=== PATIENT | male | born 1980 | race Caucasian/White ===

== ENCOUNTER 2016-04-29 10:58 | Emergency (ER) | payer MEDICAID, OTHER ==
[~2016-04-29] VITALS: Ht 172.7 cm; Wt 111.4 kg
[~2016-04-29 10:58] MED LIST: ARIP10TA14 PO; GEMF600T3 PO
[2016-04-29 11:36] LABS: GLUCOSE,POINT OF CARE 102 MG/DL (70-110)
[2016-04-29 13:32] LABS: GLUCOSE,POINT OF CARE 103 MG/DL (70-110)
[2016-04-29 14:25] LABS: BASOPHILS % (AUTO) 0.4 % (0.0-2.0); EOSINOPHILS % (AUTO) 1.1 % (1.0-6.0); HEMATOCRIT 41.6 % (41-53); HEMOGLOBIN 13.5 g/dL (13.5-17.5); LYMPHOCYTES # (AUTO) 2.9 K/uL (1.0-4.8); MEAN CORPUSCULAR HEMOGLOBIN 26.8 pg (26.0-34.0); MEAN CORPUSCULAR HGB CONC 32.5 G/dL (31.0-37.0); MEAN CORPUSCULAR VOLUME 82 fL (80-100); MONOCYTES # (AUTO) 0.9 K/uL (0.1-1.0); MONOCYTES % (AUTO) 9.3 % (2.0-9.0); NEUTROPHILS # (AUTO) 5.5 K/uL (1.8-7.7); NEUTROPHILS % (AUTO) 58.2 % (40.0-70.0); PLATELET COUNT (AUTO) 348 K/uL (150-450); RED BLOOD CELL COUNT(AUTO) 5.06 MIL/uL (4.50-5.90); RED CELL DISTRIBUTION WIDTH 13.8 % (11.5-14.5); WHITE BLOOD COUNT (AUTO) 9.5 K/uL (4.5-11.0)
[2016-04-29 14:34] LABS: ADD UA MICROSCOPIC NO; APPEARANCE,URINE CLEAR (CLEAR); GLUCOSE, URINE (UA) NEGATIVE (NEGATIVE); KETONES,URINE NEGATIVE (NEGATIVE); LEUKOCYTE ESTERASE ,URINE NEGATIVE (NEGATIVE); OCCULT BLOOD,URINE NEGATIVE (NEGATIVE); PROTEIN,URINE NEGATIVE (NEGATIVE)
[2016-04-29 14:35] LABS: ANION GAP 9 mmol/L (8-16); CALCIUM, TOTAL 9.3 mg/dL (8.8-10.5); CARBON DIOXIDE 28 mmol/L (22-29); CHLORIDE 100 mmol/L (98-107); CREATININE 0.86 mg/dL (0.60-1.30); GLOMERULAR FILTR. RATE CALC > 60 mL/min (>60); POTASSIUM 3.4 mmol/L (3.5-5.1); SODIUM SERUM 137 mmol/L (136-145); UREA NITROGEN, BLOOD 11 mg/dL (7-18)
[2016-04-29 14:40] LABS: ALANINE AMINOTRANSFERASE 37 U/L (12-78); ALBUMIN 4.2 g/dL (3.4-5.0); ASPARTATE AMINOTRANSFERASE 21 U/L (15-37); BILIRUBIN,TOTAL 0.3 mg/dL (0.1-1.0); TOTAL PROTEIN, SERUM 8.4 g/dL (6.4-8.2)
[2016-04-29 16:16] VITALS: BP 118/66
[2016-04-29] MEDS ORDERED: MECLIZINE HCL 25 MG TABLET PO ONE (16:30)
== END 2016-04-29 17:03 | disposition home or self-care (01) ==
LOC: EMS 10:59
DX: H81.399 Other peripheral vertigo, unspecified ear (principal); E78.00 Pure hypercholesterolemia, unspecified
CPT/HCPCS: 82962; 93005; 99285

== ENCOUNTER 2019-11-22 12:01 | Emergency (ER) | payer OTHER ==
[~2019-11-22] VITALS: Ht 172.7 cm; Wt 147.7 kg
[~2019-11-22 12:01] MED LIST changes: -ARIP10TA14 PO; +ARIP10TA8 PO; -GEMF600T3 PO; +GEMF600T5 PO
[2019-11-22] MEDS ORDERED: PIOG45TA4 PO (12:35)
[2019-11-22] MEDS ORDERED: FAMO20 PO (12:35)
[2019-11-22] MEDS ORDERED: TRAZ-252 PO (12:35)
[2019-11-22] MEDS ORDERED: ASPI-1111 PO (12:35)
[2019-11-22] MEDS ORDERED: METF-911 PO (12:35)
[2019-11-22] MEDS ORDERED: FENO160T41 PO (12:35)
[2019-11-22 13:24] LABS: BASOPHILS % (AUTO) 0.6 % (0.0-2.0); EOSINOPHILS % (AUTO) 0.4 % (1.0-6.0); HEMOGLOBIN 12.8 g/dL (13.5-17.5); LYMPHOCYTES # (AUTO) 2.5 K/uL (1.0-4.8); LYMPHOCYTES % (AUTO) 20.6 % (22.0-44.0); MEAN CORPUSCULAR HEMOGLOBIN 26.4 pg (26.0-34.0); MEAN CORPUSCULAR HGB CONC 32.8 G/dL (31.0-37.0); MEAN CORPUSCULAR VOLUME 81 fL (80-100); NEUTROPHILS # (AUTO) 8.7 K/uL (1.8-7.7); NEUTROPHILS % (AUTO) 70.4 % (40.0-70.0); PLATELET COUNT (AUTO) 330 K/uL (150-450); RED BLOOD CELL COUNT(AUTO) 4.85 MIL/uL (4.50-5.90); RED CELL DISTRIBUTION WIDTH 13.5 % (11.5-14.5)
[2019-11-22 13:42] LABS: ANION GAP 6 mmol/L (8-16); CALCIUM, TOTAL 8.9 mg/dL (8.8-10.5); CARBON DIOXIDE 29 mmol/L (22-29); CHLORIDE 94 mmol/L (98-107); GLOMERULAR FILTR. RATE CALC > 60 mL/min (>60); GLUCOSE,RANDOM 162 mg/dL (70-110); POTASSIUM 3.7 mmol/L (3.5-5.1); SODIUM SERUM 129 mmol/L (136-145); UREA NITROGEN, BLOOD 17 mg/dL (7-18)
[2019-11-22 13:48] LABS: ALANINE AMINOTRANSFERASE 34 U/L (12-78); ALBUMIN 3.6 g/dL (3.4-5.0); ALKALINE PHOSPHATASE 113 U/L (46-116); ASPARTATE AMINOTRANSFERASE 18 U/L (15-37); BILIRUBIN,TOTAL 0.2 mg/dL (0.1-1.0); LIPASE 102 U/L (73-393); TOTAL PROTEIN, SERUM 7.1 g/dL (6.4-8.2)
[2019-11-22] MEDS: LORazepam 1 MG TABLET PO ONE (13:59)
[2019-11-22 14:31] LABS: AMPHET/METH SCREEN,URINE NEGATIVE (NEGATIVE); BARBITURATE SCREEN, URINE NEGATIVE (NEGATIVE); BENZODIAZEPINES SCREEN,URINE NEGATIVE (NEGATIVE); CANNABINOID SCREEN,URINE NEGATIVE (NEGATIVE); COCAINE SCREEN,URINE NEGATIVE (NEGATIVE); METHADONE SCREEN, URINE NEGATIVE (NEGATIVE); OPIATE SCREEN,URINE NEGATIVE (NEGATIVE); PHENCYCLIDINE SCREEN,URINE NEGATIVE (NEGATIVE)
[2019-11-22 16:10] VITALS: BP 158/80
== END 2019-11-22 16:57 | disposition home or self-care (01) ==
LOC: EMS 12:03
DX: F41.9 Anxiety disorder, unspecified (principal); F20.9 Schizophrenia, unspecified; F32.9 Major depressive disorder, single episode, unspecified; E78.00 Pure hypercholesterolemia, unspecified; I10 Essential (primary) hypertension; Z79.82 Long term (current) use of aspirin; Z79.84 Long term (current) use of oral hypoglycemic drugs; Z79.899 Other long term (current) drug therapy
CPT/HCPCS: 36415; 80053; 80307; 82962; 83690; 85025; 99284; G0480

== ENCOUNTER 2021-04-11 14:20 | Observation (INO) | payer OTHER ==
[~2021-04-11] VITALS: Ht 172.7 cm; Wt 147.5 kg
[~2021-04-11 14:20] MED LIST changes: +ARIP10TA38 PO; -ARIP10TA8 PO; +ASPI-1444 PO; +FAMO20 PO; +FENO160T14 PO; -GEMF600T5 PO; +GEMF600T90 PO; +METF-911 PO; +PIOG45TA4 PO; +TRAZ-252 PO
[2021-04-11 15:29] LABS: BASOPHILS % (AUTO) 0.3 % (0.0-2.0); EOSINOPHILS % (AUTO) 0.8 % (1.0-6.0); HEMOGLOBIN 13.4 g/dL (13.5-17.5); LYMPHOCYTES # (AUTO) 2.8 K/uL (1.0-4.8); LYMPHOCYTES % (AUTO) 25.9 % (22.0-44.0); MEAN CORPUSCULAR HEMOGLOBIN 25.8 pg (26.0-34.0); MEAN CORPUSCULAR HGB CONC 33.5 G/dL (31.0-37.0); MEAN CORPUSCULAR VOLUME 77 fL (80-100); MONOCYTES # (AUTO) 0.7 K/uL (0.1-1.0); MONOCYTES % (AUTO) 6.7 % (2.0-9.0); NEUTROPHILS # (AUTO) 7.3 K/uL (1.8-7.7); NEUTROPHILS % (AUTO) 66.3 % (40.0-70.0); PLATELET COUNT (AUTO) 303 K/uL (150-450); RED BLOOD CELL COUNT(AUTO) 5.18 MIL/uL (4.50-5.90); RED CELL DISTRIBUTION WIDTH 14.5 % (11.5-14.5)
[2021-04-11 15:37] LABS: ANION GAP 11 mmol/L (8-16); CALCIUM, TOTAL 9.6 mg/dL (8.8-10.5); CARBON DIOXIDE 26 mmol/L (22-29); CHLORIDE 100 mmol/L (98-107); GLOMERULAR FILTR. RATE CALC > 60 mL/min (>60); GLUCOSE,RANDOM 167 mg/dL (70-110); SODIUM SERUM 137 mmol/L (136-145); UREA NITROGEN, BLOOD 10 mg/dL (7-18)
[2021-04-11 15:43] LABS: ALANINE AMINOTRANSFERASE 33 U/L (12-78); ALBUMIN 3.5 g/dL (3.4-5.0); ALKALINE PHOSPHATASE 130 U/L (46-116); ASPARTATE AMINOTRANSFERASE 19 U/L (15-37); BILIRUBIN,TOTAL 0.2 mg/dL (0.1-1.0); TOTAL PROTEIN, SERUM 7.4 g/dL (6.4-8.2)
[2021-04-11 17:02] LABS: AMPHET/METH SCREEN,URINE NEGATIVE (NEGATIVE); BARBITURATE SCREEN, URINE NEGATIVE (NEGATIVE); BENZODIAZEPINES SCREEN,URINE NEGATIVE (NEGATIVE); CANNABINOID SCREEN,URINE NEGATIVE (NEGATIVE); COCAINE SCREEN,URINE NEGATIVE (NEGATIVE); METHADONE SCREEN, URINE NEGATIVE (NEGATIVE); OPIATE SCREEN,URINE NEGATIVE (NEGATIVE)
[2021-04-11 17:05] LABS: PHENCYCLIDINE SCREEN,URINE NEGATIVE (NEGATIVE)
[2021-04-11] MEDS ORDERED: ZOLPIDEM TARTRATE 10 MG TABLET PO PRN (18:00)
[2021-04-11] MEDS ORDERED: HALOPERIDOL 5 MG TABLET PO PRN (18:00)
[2021-04-11] MEDS ORDERED: LORazepam 2 MG TABLET PO PRN (18:00)
[2021-04-11 19:21] LABS: COVID AG,FIA SOURCE NASOPHARYNGEAL
[2021-04-12] MEDS ORDERED: 0.9% SODIUM CHLORIDE 10 ML SYRINGE IVP PRN (00:15)
[2021-04-12] MEDS ORDERED: ACETAMINOPHEN 325 MG TABLET PO PRN ×2 (00:15→05:30)
[2021-04-12 00:39] LABS: CHOL/HDL RATIO 7.3 (4.2-7.3); CHOLESTEROL 213 mg/dL (131-200); HDL CHOLESTEROL 29 mg/dL (40-60); TRIGLYCERIDES 484 mg/dL (15-150)
[2021-04-12 03:10] VITALS: BP 113/58
[2021-04-12] MEDS ORDERED: ALBUTEROL SULFATE HFA 90 MCG/PUFF 8 GM INHALER IH PRN (05:30)
[2021-04-12] MEDS ORDERED: GuaiFENesin/D-METHORPHAN [SUGAR-FREE] 200-20MG/10 ML SYRUP UDCUP PO PRN (05:30)
[2021-04-12] MEDS ORDERED: ONDANSETRON HCL 4 MG TABLET PO PRN (05:30)
[2021-04-12] MEDS ORDERED: DOCUSATE SODIUM 100 MG CAPSULE PO PRN (05:30)
[2021-04-12] MEDS ORDERED: CloNIDine HCL 0.1 MG TABLET PO PRN (05:30)
[2021-04-12] MEDS ORDERED: MAGNESIUM HYDROXIDE SUSPENSION 30 ML UDCUP PO PRN (05:30)
[2021-04-12] MEDS ORDERED: NICOTINE 14 MG/24 HOUR PATCH TD PRN (05:30)
[2021-04-12] MEDS ORDERED: PETROLATUM,WHITE 28 GM JELLY TP PRN (05:30)
[2021-04-12] MEDS ORDERED: MAG HYDROX/AL HYDROX/SIMETH ES 30 ML SUSPENSION UDCUP PO PRN (05:30)
[2021-04-12] MEDS ORDERED: IBUPROFEN 400 MG TABLET PO PRN (05:30)
[2021-04-12] MEDS ORDERED: LOPERAMIDE HCL 2 MG CAPSULE PO PRN (05:30)
[2021-04-12] MEDS: GEMFIBROZIL 600 MG TABLET PO SCH ×2 (06:27→17:30)
[2021-04-12 08:50] VITALS: BP 136/84
[2021-04-12] MEDS: PIOGLITAZONE HCL 45 MG TABLET PO SCH (09:00)
[2021-04-12 09:31] LABS: GLUCOMETER DEV NAME(LOC) 5N.3; GLUCOSE,POINT OF CARE 133 MG/DL (70-110)
[2021-04-12] MEDS: MetFORMIN HCL 500 MG ER TABLET PO SCH ×2 (09:51→18:07)
[2021-04-12] MEDS: ARIPiprazole 15 MG TABLET PO SCH (09:51)
[2021-04-12] MEDS: FENOFIBRATE 160 MG TABLET PO SCH (09:52)
[2021-04-12] MEDS: ASPIRIN 81 MG DR TABLET PO SCH (09:52)
[2021-04-12] MEDS: FAMOTIDINE 20 MG TABLET PO SCH ×2 (09:52→20:50)
[2021-04-12] MEDS ORDERED: DEXTROSE 50%-WATER 25 GM/50 ML SYRINGE IVP PRN (12:00)
[2021-04-12 12:01] LABS: GLUCOMETER DEV NAME(LOC) 5N.1C; GLUCOSE,POINT OF CARE 244 MG/DL (70-110)
[2021-04-12] MEDS: INSULIN LISPRO 100 UNITS/ML SQ PRN ×3 (12:12→21:31)
[2021-04-12 12:17] VITALS: BP 125/78
[2021-04-12 12:20] VITALS: BP 125/78
[2021-04-12 16:07] VITALS: BP 128/68
[2021-04-12 19:45] VITALS: BP 111/77
[2021-04-12 20:26] LABS: GLUCOMETER DEV NAME(LOC) 5S.2B; GLUCOSE,POINT OF CARE 179 MG/DL (70-110)
[2021-04-12] MEDS ORDERED: TraZODone HCL 50 MG TABLET PO SCH (21:00)
[2021-04-12 21:56] LABS: GLUCOMETER DEV NAME(LOC) 5S.2B; GLUCOSE,POINT OF CARE 200 MG/DL (70-110)
[2021-04-13 00:11] VITALS: BP 126/73
[2021-04-13 04:35] VITALS: BP 139/84
[2021-04-13] MEDS: GEMFIBROZIL 600 MG TABLET PO SCH ×2 (06:41→17:10)
[2021-04-13] MEDS: INSULIN LISPRO 100 UNITS/ML SQ PRN ×3 (06:41→17:17)
[2021-04-13 07:08] LABS: BASOPHILS % (AUTO) 0.4 % (0.0-2.0); MONOCYTES # (AUTO) 0.7 K/uL (0.1-1.0)
[2021-04-13 07:18] LABS: EOSINOPHILS % (AUTO) 1.3 % (1.0-6.0); HEMATOCRIT 41.2 % (41-53); HEMOGLOBIN 13.8 g/dL (13.5-17.5); LYMPHOCYTES # (AUTO) 2.7 K/uL (1.0-4.8); LYMPHOCYTES % (AUTO) 31.6 % (22.0-44.0); MEAN CORPUSCULAR HEMOGLOBIN 26.1 pg (26.0-34.0); MEAN CORPUSCULAR HGB CONC 33.5 G/dL (31.0-37.0); MEAN CORPUSCULAR VOLUME 78 fL (80-100); NEUTROPHILS % (AUTO) 58.7 % (40.0-70.0); PLATELET COUNT (AUTO) 311 K/uL (150-450); RED BLOOD CELL COUNT(AUTO) 5.28 MIL/uL (4.50-5.90); RED CELL DISTRIBUTION WIDTH 14.6 % (11.5-14.5)
[2021-04-13 07:50] LABS: ALANINE AMINOTRANSFERASE 34 U/L (12-78); ALBUMIN 3.6 g/dL (3.4-5.0); ALKALINE PHOSPHATASE 102 U/L (46-116); ANION GAP 10 mmol/L (8-16); ASPARTATE AMINOTRANSFERASE 19 U/L (15-37); BILIRUBIN,TOTAL 0.4 mg/dL (0.1-1.0); CARBON DIOXIDE 25 mmol/L (22-29); CHLORIDE 100 mmol/L (98-107); CREATININE 0.73 mg/dL (0.60-1.30); GLOMERULAR FILTR. RATE CALC > 60 mL/min (>60); GLUCOSE,RANDOM 192 mg/dL (70-110); POTASSIUM 4.1 mmol/L (3.5-5.1); SODIUM SERUM 135 mmol/L (136-145); TOTAL PROTEIN, SERUM 7.9 g/dL (6.4-8.2); UREA NITROGEN, BLOOD 9 mg/dL (7-18)
[2021-04-13 08:30] VITALS: BP 135/83
[2021-04-13 09:01] LABS: GLUCOMETER DEV NAME(LOC) 5S.2B; GLUCOSE,POINT OF CARE 211 MG/DL (70-110)
[2021-04-13] MEDS: FAMOTIDINE 20 MG TABLET PO SCH (09:04)
[2021-04-13] MEDS: ARIPiprazole 15 MG TABLET PO SCH (09:04)
[2021-04-13] MEDS: ASPIRIN 81 MG DR TABLET PO SCH (09:04)
[2021-04-13] MEDS: PIOGLITAZONE HCL 45 MG TABLET PO SCH (09:04)
[2021-04-13] MEDS: FENOFIBRATE 160 MG TABLET PO SCH (09:04)
[2021-04-13] MEDS: MetFORMIN HCL 500 MG ER TABLET PO SCH ×2 (09:04→17:10)
[2021-04-13 11:03] VITALS: BP 134/81
[2021-04-13 12:21] LABS: GLUCOMETER DEV NAME(LOC) 5S.2B; GLUCOSE,POINT OF CARE 185 MG/DL (70-110)
[2021-04-13 14:57] VITALS: BP 134/78
[2021-04-13 16:22] LABS: COVID AG,FIA SOURCE NASOPHARYNGEAL
[2021-04-13 18:11] LABS: GLUCOMETER DEV NAME(LOC) 5S.2B; GLUCOSE,POINT OF CARE 201 MG/DL (70-110)
[2021-04-13 21:51] LABS: GLUCOMETER DEV NAME(LOC) 3EX.; GLUCOSE,POINT OF CARE 217 MG/DL (70-110)
== END 2021-04-13 18:40 ==
LOC: EMS 14:20 → INTOOBSV 04-12 00:53 → 5S 04-12 00:53
PROVIDERS: ADMIT Internal Medicine; ATTEND Internal Medicine
DX: F25.9 Schizoaffective disorder, unspecified (principal); F32.A Depression, unspecified; E66.01 Morbid (severe) obesity due to excess calories; G47.33 Obstructive sleep apnea (adult) (pediatric); Z20.822 Contact with and (suspected) exposure to COVID-19; E78.5 Hyperlipidemia, unspecified; I10 Essential (primary) hypertension; Z79.899 Other long term (current) drug therapy; Z79.4 Long term (current) use of insulin
CPT/HCPCS: 36415 ×2; 80053 ×2; 80061; 80307; 82962 ×2; 85025 ×2; 87426 ×2; 94660 ×2; 96372 ×2; 99219 ×2; 99284; G0480; 99285; G0378

== ENCOUNTER 2021-04-13 14:27 | Inpatient (IN) | payer MEDICAID ==
[~2021-04-13] VITALS: Ht 172.7 cm; Wt 146.3 kg
[2021-04-13] MEDS ORDERED: HALOPERIDOL 5 MG TABLET PO PRN ×2 (16:00→19:45)
[2021-04-13] MEDS ORDERED: LORazepam 2 MG TABLET PO PRN ×2 (16:00→19:45)
[2021-04-13] MEDS ORDERED: ZOLPIDEM TARTRATE 10 MG TABLET PO PRN ×2 (16:00→19:45)
[2021-04-13 19:00] VITALS: BP 161/86
[2021-04-13] MEDS ORDERED: DEXTROSE 50%-WATER 25 GM/50 ML SYRINGE IVP PRN (19:45)
[2021-04-13] MEDS: TraZODone HCL 50 MG TABLET PO SCH (20:11)
[2021-04-13] MEDS ORDERED: ACETAMINOPHEN 325 MG TABLET PO PRN (20:45)
[2021-04-13] MEDS ORDERED: MAGNESIUM HYDROXIDE SUSPENSION 30 ML UDCUP PO PRN (20:45)
[2021-04-13] MEDS ORDERED: MAG HYDROX/AL HYDROX/SIMETH ES 30 ML SUSPENSION UDCUP PO PRN (20:45)
[2021-04-13] MEDS ORDERED: GuaiFENesin/D-METHORPHAN [SUGAR-FREE] 200-20MG/10 ML SYRUP UDCUP PO PRN (20:45)
[2021-04-13] MEDS ORDERED: ONDANSETRON HCL 4 MG TABLET PO PRN (20:45)
[2021-04-13] MEDS ORDERED: PETROLATUM,WHITE 28 GM JELLY TP PRN (20:45)
[2021-04-13] MEDS ORDERED: DOCUSATE SODIUM 100 MG CAPSULE PO PRN (20:45)
[2021-04-13] MEDS ORDERED: NICOTINE 14 MG/24 HOUR PATCH TD PRN (20:45)
[2021-04-13] MEDS ORDERED: ALBUTEROL SULFATE HFA 90 MCG/PUFF 8 GM INHALER IH PRN (20:45)
[2021-04-13] MEDS ORDERED: LOPERAMIDE HCL 2 MG CAPSULE PO PRN (20:45)
[2021-04-13] MEDS ORDERED: CloNIDine HCL 0.1 MG TABLET PO PRN (20:45)
[2021-04-13] MEDS: INSULIN LISPRO 100 UNITS/ML SQ PRN (21:43)
[2021-04-14 06:36] LABS: GLUCOMETER DEV NAME(LOC) 3EX.; GLUCOSE,POINT OF CARE 192 MG/DL (70-110)
[2021-04-14] MEDS: INSULIN LISPRO 100 UNITS/ML SQ PRN ×4 (06:41→20:27)
[2021-04-14] MEDS: GEMFIBROZIL 600 MG TABLET PO SCH ×2 (06:46→16:15)
[2021-04-14] MEDS: MetFORMIN HCL 500 MG ER TABLET PO SCH ×2 (06:47→16:41)
[2021-04-14 08:33] VITALS: BP 145/95
[2021-04-14] MEDS: ASPIRIN 81 MG CHEWABLE TABLET PO SCH (08:58)
[2021-04-14] MEDS: FENOFIBRATE 160 MG TABLET PO SCH (08:58)
[2021-04-14] MEDS: ARIPiprazole 15 MG TABLET PO SCH (08:58)
[2021-04-14] MEDS: FAMOTIDINE 20 MG TABLET PO SCH (08:58)
[2021-04-14] MEDS: PIOGLITAZONE HCL 45 MG TABLET PO SCH (08:58)
[2021-04-14 10:51] VITALS: BP 145/95
[2021-04-14] MEDS: IBUPROFEN 400 MG TABLET PO PRN (10:56)
[2021-04-14 11:01] LABS: GLUCOMETER DEV NAME(LOC) 3EX.; GLUCOSE,POINT OF CARE 206 MG/DL (70-110)
[2021-04-14 16:34] VITALS: BP 154/100
[2021-04-14 17:01] LABS: GLUCOMETER DEV NAME(LOC) 3EX.; GLUCOSE,POINT OF CARE 255 MG/DL (70-110)
[2021-04-14] MEDS: TraZODone HCL 50 MG TABLET PO SCH (20:19)
[2021-04-14 20:36] LABS: GLUCOMETER DEV NAME(LOC) 3EX.; GLUCOSE,POINT OF CARE 187 MG/DL (70-110)
[2021-04-15 01:20] VITALS: BP 131/82
[2021-04-15 06:27] LABS: GLUCOMETER DEV NAME(LOC) 3EX.; GLUCOSE,POINT OF CARE 179 MG/DL (70-110)
[2021-04-15] MEDS: GEMFIBROZIL 600 MG TABLET PO SCH ×2 (06:44→17:59)
[2021-04-15] MEDS: MetFORMIN HCL 500 MG ER TABLET PO SCH ×2 (06:46→17:59)
[2021-04-15] MEDS: INSULIN LISPRO 100 UNITS/ML SQ PRN ×4 (06:57→21:09)
[2021-04-15 07:40] LABS: ALANINE AMINOTRANSFERASE 36 U/L (12-78); ALBUMIN 3.8 g/dL (3.4-5.0); ALKALINE PHOSPHATASE 107 U/L (46-116); ANION GAP 7 mmol/L (8-16); ASPARTATE AMINOTRANSFERASE 16 U/L (15-37); BILIRUBIN,TOTAL 0.4 mg/dL (0.1-1.0); CARBON DIOXIDE 27 mmol/L (22-29); CHLORIDE 100 mmol/L (98-107); CREATININE 0.82 mg/dL (0.60-1.30); GLOMERULAR FILTR. RATE CALC > 60 mL/min (>60); GLUCOSE,RANDOM 206 mg/dL (70-110); SODIUM SERUM 134 mmol/L (136-145); TOTAL PROTEIN, SERUM 8.2 g/dL (6.4-8.2); UREA NITROGEN, BLOOD 10 mg/dL (7-18)
[2021-04-15 08:00] VITALS: BP 160/52
[2021-04-15] MEDS: PIOGLITAZONE HCL 45 MG TABLET PO SCH (09:10)
[2021-04-15] MEDS: FENOFIBRATE 160 MG TABLET PO SCH (09:10)
[2021-04-15] MEDS: ARIPiprazole 15 MG TABLET PO SCH (09:11)
[2021-04-15] MEDS: FAMOTIDINE 20 MG TABLET PO SCH (09:11)
[2021-04-15] MEDS: ASPIRIN 81 MG CHEWABLE TABLET PO SCH (09:11)
[2021-04-15 10:41] LABS: GLUCOMETER DEV NAME(LOC) 3EX.; GLUCOSE,POINT OF CARE 214 MG/DL (70-110)
[2021-04-15 14:22] VITALS: BP 142/74
[2021-04-15 16:00] VITALS: BP 159/79
[2021-04-15 16:46] LABS: GLUCOMETER DEV NAME(LOC) 3EX.; GLUCOSE,POINT OF CARE 199 MG/DL (70-110)
[2021-04-15] MEDS: IBUPROFEN 400 MG TABLET PO PRN (20:08)
[2021-04-15] MEDS: TraZODone HCL 50 MG TABLET PO SCH (20:08)
[2021-04-15 20:26] LABS: GLUCOMETER DEV NAME(LOC) 3EX.; GLUCOSE,POINT OF CARE 200 MG/DL (70-110)
[2021-04-16 05:51] LABS: GLUCOMETER DEV NAME(LOC) 3EX.; GLUCOSE,POINT OF CARE 190 MG/DL (70-110)
[2021-04-16] MEDS: MetFORMIN HCL 500 MG ER TABLET PO SCH (06:40)
[2021-04-16] MEDS: GEMFIBROZIL 600 MG TABLET PO SCH (06:40)
[2021-04-16] MEDS: INSULIN LISPRO 100 UNITS/ML SQ PRN ×2 (06:41→11:41)
[2021-04-16] MEDS: FENOFIBRATE 160 MG TABLET PO SCH (09:16)
[2021-04-16] MEDS: PIOGLITAZONE HCL 45 MG TABLET PO SCH (09:16)
[2021-04-16] MEDS: FAMOTIDINE 20 MG TABLET PO SCH (09:16)
[2021-04-16] MEDS: ARIPiprazole 15 MG TABLET PO SCH (09:16)
[2021-04-16] MEDS: ASPIRIN 81 MG CHEWABLE TABLET PO SCH (09:16)
[2021-04-16 11:51] LABS: GLUCOMETER DEV NAME(LOC) 3EX.; GLUCOSE,POINT OF CARE 164 MG/DL (70-110)
== END 2021-04-16 12:30 | disposition home or self-care (01) | DRG 750 ==
LOC: 3EI 18:45
PROVIDERS: ADMIT Psychiatry & Neurology Psychiatry; ATTEND Psychiatry & Neurology Psychiatry
DX: F25.9 Schizoaffective disorder, unspecified (principal); E11.9 Type 2 diabetes mellitus without complications; E66.01 Morbid (severe) obesity due to excess calories; E78.5 Hyperlipidemia, unspecified; G47.33 Obstructive sleep apnea (adult) (pediatric); I10 Essential (primary) hypertension; Z68.42 Body mass index [BMI] 45.0-49.9, adult; G47.30 Sleep apnea, unspecified; R09.02 Hypoxemia; Z79.82 Long term (current) use of aspirin; Z79.84 Long term (current) use of oral hypoglycemic drugs
CPT/HCPCS: 80053; 82962; 87081

== ENCOUNTER 2021-09-11 13:29 | Emergency (ER) | payer MEDICARE, OTHER ==
[~2021-09-11] VITALS: Ht 172.7 cm; Wt 147.7 kg
[~2021-09-11 13:29] MED LIST changes: -FENO160T14 PO; +FENO160T75 PO; +GEMF-77 PO; -GEMF600T90 PO; +METF-81 PO; -METF-911 PO
[2021-09-11] MEDS ORDERED: INSLAN SQ ×2 (14:24)
[2021-09-11 14:32] LABS: BASOPHILS % (AUTO) 0.3 % (0.0-2.0); EOSINOPHILS % (AUTO) 0.8 % (1.0-6.0); HEMATOCRIT 38.3 % (41-53); HEMOGLOBIN 12.8 g/dL (13.5-17.5); LYMPHOCYTES # (AUTO) 2.7 K/uL (1.0-4.8); LYMPHOCYTES % (AUTO) 24.7 % (22.0-44.0); MEAN CORPUSCULAR HGB CONC 33.4 G/dL (31.0-37.0); MEAN CORPUSCULAR VOLUME 78 fL (80-100); MONOCYTES # (AUTO) 0.7 K/uL (0.1-1.0); MONOCYTES % (AUTO) 6.6 % (2.0-9.0); NEUTROPHILS # (AUTO) 7.2 K/uL (1.8-7.7); NEUTROPHILS % (AUTO) 67.6 % (40.0-70.0); PLATELET COUNT (AUTO) 312 K/uL (150-450); RED BLOOD CELL COUNT(AUTO) 4.91 MIL/uL (4.50-5.90); RED CELL DISTRIBUTION WIDTH 14.1 % (11.5-14.5)
[2021-09-11 14:42] LABS: ANION GAP 9 mmol/L (8-16); CARBON DIOXIDE 27 mmol/L (22-29); CHLORIDE 98 mmol/L (98-107); CREATININE 0.74 mg/dL (0.60-1.30); GLUCOSE,RANDOM 160 mg/dL (70-110); POTASSIUM 3.8 mmol/L (3.5-5.1); SODIUM SERUM 134 mmol/L (136-145); UREA NITROGEN, BLOOD 9 mg/dL (7-18)
[2021-09-11 14:43] LABS: GLOMERULAR FILTR. RATE CALC > 60 mL/min (>60)
[2021-09-11 14:48] LABS: ALANINE AMINOTRANSFERASE 42 U/L (12-78); ALBUMIN 3.8 g/dL (3.4-5.0); ALKALINE PHOSPHATASE 125 U/L (46-116); ASPARTATE AMINOTRANSFERASE 21 U/L (15-37); BILIRUBIN,TOTAL 0.2 mg/dL (0.1-1.0); TOTAL PROTEIN, SERUM 7.6 g/dL (6.4-8.2)
[2021-09-11 14:49] LABS: COVID AG,FIA SOURCE NASOPHARYNGEAL
[2021-09-11] MEDS ORDERED: INSU100I3 SQ (14:59)
[2021-09-11] MEDS ORDERED: GABA-1181 PO (14:59)
[2021-09-11] MEDS ORDERED: METF-446 PO (14:59)
[2021-09-11] MEDS ORDERED: BENA-8 PO (14:59)
[2021-09-11] MEDS ORDERED: SERT-440 PO (14:59)
[2021-09-11] MEDS ORDERED: ACETAMINOPHEN 500 MG TABLET PO ONE (15:00)
[2021-09-11 15:06] LABS: AMPHET/METH SCREEN,URINE NEGATIVE (NEGATIVE); BARBITURATE SCREEN, URINE NEGATIVE (NEGATIVE); BENZODIAZEPINES SCREEN,URINE NEGATIVE (NEGATIVE); CANNABINOID SCREEN,URINE NEGATIVE (NEGATIVE); COCAINE SCREEN,URINE NEGATIVE (NEGATIVE); METHADONE SCREEN, URINE NEGATIVE (NEGATIVE); OPIATE SCREEN,URINE NEGATIVE (NEGATIVE)
[2021-09-11 15:08] LABS: PHENCYCLIDINE SCREEN,URINE NEGATIVE (NEGATIVE)
[2021-09-11 16:45] VITALS: BP 139/88
[2021-09-11 22:32] LABS: GLUCOMETER DEV NAME(LOC) CSU.; GLUCOSE,POINT OF CARE 172 MG/DL (70-110)
== END 2021-09-11 18:41 | disposition home or self-care (01) ==
LOC: EMS 13:29
DX: F32.A Depression, unspecified (principal); E11.9 Type 2 diabetes mellitus without complications; F20.9 Schizophrenia, unspecified; Z20.822 Contact with and (suspected) exposure to COVID-19
CPT/HCPCS: 99284; 87426; 80053; 82962; 85025; 36415; 80307; G0480

== ENCOUNTER 2021-10-01 10:41 | Inpatient (IN) | payer MEDICARE, MEDICAID ==
[~2021-10-01] VITALS: Ht 172.7 cm; Wt 146.2 kg
[~2021-10-01 10:41] MED LIST changes: +BENA-8 PO; +GABA-1181 PO; +INSLAN SQ; +INSU100I3 SQ; +METF-446 PO; -METF-81 PO; +SERT-440 PO
[2021-10-01 11:01] LABS: COVID AG,FIA SOURCE NASOPHARYNGEAL
[2021-10-01 11:03] LABS: BASOPHILS % (AUTO) 0.6 % (0.0-2.0); EOSINOPHILS % (AUTO) 0.7 % (1.0-6.0); HEMOGLOBIN 13.4 g/dL (13.5-17.5); LYMPHOCYTES # (AUTO) 3.1 K/uL (1.0-4.8); LYMPHOCYTES % (AUTO) 22.2 % (22.0-44.0); MEAN CORPUSCULAR HEMOGLOBIN 26.3 pg (26.0-34.0); MEAN CORPUSCULAR HGB CONC 33.4 G/dL (31.0-37.0); MEAN CORPUSCULAR VOLUME 79 fL (80-100); MONOCYTES # (AUTO) 0.9 K/uL (0.1-1.0); MONOCYTES % (AUTO) 6.5 % (2.0-9.0); NEUTROPHILS # (AUTO) 9.8 K/uL (1.8-7.7); PLATELET COUNT (AUTO) 347 K/uL (150-450); RED BLOOD CELL COUNT(AUTO) 5.08 MIL/uL (4.50-5.90)
[2021-10-01 11:21] LABS: ANION GAP 11 mmol/L (8-16); CARBON DIOXIDE 24 mmol/L (22-29); CHLORIDE 95 mmol/L (98-107); GLUCOSE,RANDOM 175 mg/dL (70-110); SODIUM SERUM 130 mmol/L (136-145); UREA NITROGEN, BLOOD 10 mg/dL (7-18)
[2021-10-01 11:26] LABS: GLOMERULAR FILTR. RATE CALC > 60 mL/min (>60)
[2021-10-01 11:27] LABS: ALANINE AMINOTRANSFERASE 38 U/L (12-78); ALKALINE PHOSPHATASE 123 U/L (46-116); ASPARTATE AMINOTRANSFERASE 20 U/L (15-37); BILIRUBIN,TOTAL 0.2 mg/dL (0.1-1.0); TOTAL PROTEIN, SERUM 7.9 g/dL (6.4-8.2)
[2021-10-01] MEDS ORDERED: LORazepam 2 MG TABLET PO ONE (12:30)
[2021-10-01 12:54] LABS: AMPHET/METH SCREEN,URINE NEGATIVE (NEGATIVE); BARBITURATE SCREEN, URINE NEGATIVE (NEGATIVE); BENZODIAZEPINES SCREEN,URINE NEGATIVE (NEGATIVE); CANNABINOID SCREEN,URINE NEGATIVE (NEGATIVE); COCAINE SCREEN,URINE NEGATIVE (NEGATIVE); METHADONE SCREEN, URINE NEGATIVE (NEGATIVE); OPIATE SCREEN,URINE NEGATIVE (NEGATIVE); PHENCYCLIDINE SCREEN,URINE NEGATIVE (NEGATIVE)
[2021-10-01] MEDS ORDERED: HALOPERIDOL 5 MG TABLET PO PRN (13:15)
[2021-10-01 17:25] VITALS: BP 159/107
[2021-10-01 17:26] LABS: GLUCOMETER DEV NAME(LOC) 3E.I 2; GLUCOSE,POINT OF CARE 163 MG/DL (70-110)
[2021-10-01] MEDS ORDERED: DEXTROSE 50%-WATER 25 GM/50 ML SYRINGE IVP PRN (17:45)
[2021-10-01] MEDS: INSULIN LISPRO 100 UNITS/ML SQ PRN (20:10)
[2021-10-01 20:51] LABS: GLUCOMETER DEV NAME(LOC) 3E.I 2; GLUCOSE,POINT OF CARE 277 MG/DL (70-110)
[2021-10-01] MEDS ORDERED: INSULIN GLARGINE,HUM.REC.ANLOG 100 UNITS/ML SQ SCH (21:00)
[2021-10-01] MEDS: ACETAMINOPHEN 325 MG TABLET PO PRN ×2 (22:38→22:40)
[2021-10-02 05:41] LABS: GLUCOMETER DEV NAME(LOC) 3E.I 2; GLUCOSE,POINT OF CARE 193 MG/DL (70-110)
[2021-10-02] MEDS: INSULIN LISPRO 100 UNITS/ML SQ PRN ×4 (06:46→21:09)
[2021-10-02] MEDS ORDERED: MetFORMIN HCL 500 MG TABLET PO SCH (07:30)
[2021-10-02] MEDS ORDERED: NICOTINE 14 MG/24 HOUR PATCH TD PRN (08:00)
[2021-10-02] MEDS ORDERED: MAGNESIUM HYDROXIDE SUSPENSION 30 ML UDCUP PO PRN (08:00)
[2021-10-02] MEDS ORDERED: MAG HYDROX/AL HYDROX/SIMETH ES 30 ML SUSPENSION UDCUP PO PRN (08:00)
[2021-10-02] MEDS ORDERED: DOCUSATE SODIUM 100 MG CAPSULE PO PRN (08:00)
[2021-10-02] MEDS ORDERED: ALBUTEROL SULFATE HFA 90 MCG/PUFF 8 GM INHALER IH PRN (08:00)
[2021-10-02] MEDS ORDERED: CloNIDine HCL 0.1 MG TABLET PO PRN (08:00)
[2021-10-02] MEDS ORDERED: ONDANSETRON HCL 4 MG TABLET PO PRN (08:00)
[2021-10-02] MEDS ORDERED: PETROLATUM,WHITE 28 GM JELLY TP PRN (08:00)
[2021-10-02] MEDS ORDERED: GuaiFENesin/D-METHORPHAN [SUGAR-FREE] 200-20MG/10 ML SYRUP UDCUP PO PRN (08:00)
[2021-10-02] MEDS ORDERED: ACETAMINOPHEN 325 MG TABLET PO PRN (08:00)
[2021-10-02] MEDS ORDERED: IBUPROFEN 400 MG TABLET PO PRN (08:00)
[2021-10-02 08:15] VITALS: BP 161/90
[2021-10-02] MEDS: PIOGLITAZONE HCL 45 MG TABLET PO SCH (08:17)
[2021-10-02] MEDS: BENAZEPRIL HCL 20 MG TABLET PO SCH (08:18)
[2021-10-02] MEDS: FAMOTIDINE 20 MG TABLET PO SCH ×2 (08:19→16:25)
[2021-10-02] MEDS: ASPIRIN 81 MG DR TABLET PO SCH (08:20)
[2021-10-02] MEDS: GABAPENTIN 300 MG CAPSULE PO SCH ×3 (08:20→16:25)
[2021-10-02] MEDS: ACETAMINOPHEN 325 MG TABLET PO PRN (08:22)
[2021-10-02] MEDS: INSULIN GLARGINE,HUM.REC.ANLOG 100 UNITS/ML SQ SCH ×2 (08:28→21:09)
[2021-10-02 08:59] VITALS: BP 161/90
[2021-10-02] MEDS ORDERED: BENAZEPRIL HCL 20 MG TABLET PO SCH (09:00)
[2021-10-02] MEDS ORDERED: ASPIRIN 81 MG CHEWABLE TABLET PO SCH (09:00)
[2021-10-02] MEDS ORDERED: PIOGLITAZONE HCL 45 MG TABLET PO SCH (09:00)
[2021-10-02] MEDS ORDERED: FAMOTIDINE 20 MG TABLET PO SCH (09:00)
[2021-10-02 11:31] LABS: GLUCOMETER DEV NAME(LOC) 3E.I 2; GLUCOSE,POINT OF CARE 232 MG/DL (70-110)
[2021-10-02] MEDS: ARIPiprazole 10 MG TABLET PO SCH (12:46)
[2021-10-02] MEDS: SERTRALINE HCL 100 MG TABLET PO SCH (12:47)
[2021-10-02] MEDS: MetFORMIN HCL 500 MG TABLET PO SCH (16:25)
[2021-10-02 16:37] LABS: GLUCOMETER DEV NAME(LOC) 3E.I 2; GLUCOSE,POINT OF CARE 156 MG/DL (70-110)
[2021-10-02 21:20] LABS: GLUCOMETER DEV NAME(LOC) 3E.I 2; GLUCOSE,POINT OF CARE 173 MG/DL (70-110)
[2021-10-03 06:21] LABS: GLUCOMETER DEV NAME(LOC) 3E.I 2; GLUCOSE,POINT OF CARE 164 MG/DL (70-110)
[2021-10-03] MEDS: MetFORMIN HCL 500 MG TABLET PO SCH ×2 (07:13→16:56)
[2021-10-03] MEDS: INSULIN LISPRO 100 UNITS/ML SQ PRN ×3 (07:14→17:35)
[2021-10-03] MEDS: ARIPiprazole 10 MG TABLET PO SCH (08:05)
[2021-10-03] MEDS: PIOGLITAZONE HCL 45 MG TABLET PO SCH (08:06)
[2021-10-03] MEDS: SERTRALINE HCL 100 MG TABLET PO SCH (08:06)
[2021-10-03] MEDS: BENAZEPRIL HCL 20 MG TABLET PO SCH (08:06)
[2021-10-03] MEDS: FAMOTIDINE 20 MG TABLET PO SCH ×2 (08:06→16:56)
[2021-10-03] MEDS: ASPIRIN 81 MG DR TABLET PO SCH (08:06)
[2021-10-03] MEDS: GABAPENTIN 300 MG CAPSULE PO SCH ×3 (08:07→16:56)
[2021-10-03 08:22] VITALS: BP 160/99
[2021-10-03] MEDS: INSULIN GLARGINE,HUM.REC.ANLOG 100 UNITS/ML SQ SCH ×2 (08:22→21:27)
[2021-10-03 08:31] LABS: GLUCOMETER DEV NAME(LOC) 3E.I 2; GLUCOSE,POINT OF CARE 250 MG/DL (70-110)
[2021-10-03] MEDS: LOPERAMIDE HCL 2 MG CAPSULE PO PRN (09:55)
[2021-10-03 11:36] LABS: GLUCOMETER DEV NAME(LOC) 3E.I 2; GLUCOSE,POINT OF CARE 186 MG/DL (70-110)
[2021-10-03 16:03] VITALS: BP 144/97
[2021-10-03 16:46] LABS: GLUCOMETER DEV NAME(LOC) 3E.I 2; GLUCOSE,POINT OF CARE 199 MG/DL (70-110)
[2021-10-03 21:46] LABS: GLUCOMETER DEV NAME(LOC) 3E.I 2; GLUCOSE,POINT OF CARE 153 MG/DL (70-110)
[2021-10-04 06:11] LABS: GLUCOMETER DEV NAME(LOC) 3E.I 2; GLUCOSE,POINT OF CARE 133 MG/DL (70-110)
[2021-10-04] MEDS: MetFORMIN HCL 500 MG TABLET PO SCH ×2 (07:07→16:13)
[2021-10-04] MEDS: PIOGLITAZONE HCL 45 MG TABLET PO SCH (08:24)
[2021-10-04] MEDS: SERTRALINE HCL 100 MG TABLET PO SCH (08:25)
[2021-10-04] MEDS: FAMOTIDINE 20 MG TABLET PO SCH ×2 (08:25→16:13)
[2021-10-04] MEDS: ARIPiprazole 5 MG TABLET PO SCH (08:25)
[2021-10-04] MEDS: ASPIRIN 81 MG DR TABLET PO SCH (08:25)
[2021-10-04] MEDS: BENAZEPRIL HCL 20 MG TABLET PO SCH (08:26)
[2021-10-04] MEDS: GABAPENTIN 300 MG CAPSULE PO SCH ×3 (08:26→16:13)
[2021-10-04 08:32] VITALS: BP 177/115
[2021-10-04 08:51] LABS: GLUCOMETER DEV NAME(LOC) 3E.I 2; GLUCOSE,POINT OF CARE 214 MG/DL (70-110)
[2021-10-04] MEDS: INSULIN GLARGINE,HUM.REC.ANLOG 100 UNITS/ML SQ SCH ×2 (09:03→21:23)
[2021-10-04] MEDS: LOPERAMIDE HCL 2 MG CAPSULE PO PRN (11:01)
[2021-10-04 11:36] LABS: GLUCOMETER DEV NAME(LOC) 3E.I 2; GLUCOSE,POINT OF CARE 109 MG/DL (70-110)
[2021-10-04 16:06] VITALS: BP 150/77
[2021-10-04 17:26] LABS: GLUCOMETER DEV NAME(LOC) 3E.I 2; GLUCOSE,POINT OF CARE 111 MG/DL (70-110)
[2021-10-04 20:41] LABS: GLUCOMETER DEV NAME(LOC) 3E.I 2; GLUCOSE,POINT OF CARE 143 MG/DL (70-110)
[2021-10-05] MEDS: ZOLPIDEM TARTRATE 10 MG TABLET PO PRN ×2 (01:10→21:25)
[2021-10-05 01:48] VITALS: BP 164/94
[2021-10-05 05:41] LABS: GLUCOMETER DEV NAME(LOC) 3E.I 2; GLUCOSE,POINT OF CARE 109 MG/DL (70-110)
[2021-10-05] MEDS: MetFORMIN HCL 500 MG TABLET PO SCH ×2 (06:33→16:16)
[2021-10-05] MEDS: FAMOTIDINE 20 MG TABLET PO SCH ×2 (08:41→16:17)
[2021-10-05] MEDS: ARIPiprazole 5 MG TABLET PO SCH (08:41)
[2021-10-05] MEDS: GABAPENTIN 300 MG CAPSULE PO SCH ×3 (08:42→16:16)
[2021-10-05] MEDS: SERTRALINE HCL 100 MG TABLET PO SCH (08:42)
[2021-10-05] MEDS: ASPIRIN 81 MG DR TABLET PO SCH (08:42)
[2021-10-05] MEDS: PIOGLITAZONE HCL 45 MG TABLET PO SCH (08:43)
[2021-10-05] MEDS: BENAZEPRIL HCL 20 MG TABLET PO SCH (08:43)
[2021-10-05] MEDS: INSULIN GLARGINE,HUM.REC.ANLOG 100 UNITS/ML SQ SCH ×2 (08:52→21:06)
[2021-10-05 09:01] LABS: GLUCOMETER DEV NAME(LOC) 3E.I 2; GLUCOSE,POINT OF CARE 199 MG/DL (70-110)
[2021-10-05 09:10] VITALS: BP 157/90
[2021-10-05] MEDS: LOPERAMIDE HCL 2 MG CAPSULE PO PRN (09:14)
[2021-10-05] MEDS: INSULIN LISPRO 100 UNITS/ML SQ PRN (11:40)
[2021-10-05 11:41] LABS: GLUCOMETER DEV NAME(LOC) 3E.I 2; GLUCOSE,POINT OF CARE 98 MG/DL (70-110)
[2021-10-05 16:00] VITALS: BP 148/43
[2021-10-05 16:55] LABS: GLUCOMETER DEV NAME(LOC) 3E.I 2; GLUCOSE,POINT OF CARE 127 MG/DL (70-110)
[2021-10-05 20:36] LABS: GLUCOMETER DEV NAME(LOC) 3E.I 2; GLUCOSE,POINT OF CARE 153 MG/DL (70-110)
[2021-10-06 06:27] LABS: GLUCOMETER DEV NAME(LOC) 3E.I 2; GLUCOSE,POINT OF CARE 110 MG/DL (70-110)
[2021-10-06] MEDS: MetFORMIN HCL 500 MG TABLET PO SCH ×2 (06:40→16:57)
[2021-10-06] MEDS: INSULIN LISPRO 100 UNITS/ML SQ PRN ×2 (07:22→20:32)
[2021-10-06] MEDS: SERTRALINE HCL 100 MG TABLET PO SCH (08:27)
[2021-10-06] MEDS: GABAPENTIN 300 MG CAPSULE PO SCH ×3 (08:27→16:57)
[2021-10-06] MEDS: ASPIRIN 81 MG DR TABLET PO SCH (08:28)
[2021-10-06] MEDS: FAMOTIDINE 20 MG TABLET PO SCH ×2 (08:28→16:57)
[2021-10-06] MEDS: ARIPiprazole 5 MG TABLET PO SCH (08:28)
[2021-10-06] MEDS: PIOGLITAZONE HCL 45 MG TABLET PO SCH (08:29)
[2021-10-06] MEDS: BENAZEPRIL HCL 20 MG TABLET PO SCH (08:29)
[2021-10-06 08:51] LABS: GLUCOMETER DEV NAME(LOC) 3E.I 2; GLUCOSE,POINT OF CARE 202 MG/DL (70-110)
[2021-10-06 08:53] VITALS: BP 157/95
[2021-10-06] MEDS: INSULIN GLARGINE,HUM.REC.ANLOG 100 UNITS/ML SQ SCH ×2 (08:53→20:32)
[2021-10-06] MEDS: LOPERAMIDE HCL 2 MG CAPSULE PO PRN ×2 (09:20→10:33)
[2021-10-06 11:46] LABS: GLUCOMETER DEV NAME(LOC) 3E.I 2; GLUCOSE,POINT OF CARE 99 MG/DL (70-110)
[2021-10-06 16:00] VITALS: BP 136/90
[2021-10-06 16:16] LABS: GLUCOMETER DEV NAME(LOC) 3E.I 2; GLUCOSE,POINT OF CARE 105 MG/DL (70-110)
[2021-10-06] MEDS: ZOLPIDEM TARTRATE 10 MG TABLET PO PRN (20:31)
[2021-10-06 21:11] LABS: GLUCOMETER DEV NAME(LOC) 3E.I 2; GLUCOSE,POINT OF CARE 155 MG/DL (70-110)
[2021-10-07] MEDS: LORazepam 2 MG TABLET PO PRN (01:42)
[2021-10-07 06:21] LABS: GLUCOMETER DEV NAME(LOC) 3E.I 2; GLUCOSE,POINT OF CARE 105 MG/DL (70-110)
[2021-10-07] MEDS: INSULIN LISPRO 100 UNITS/ML SQ PRN (06:37)
[2021-10-07] MEDS: MetFORMIN HCL 500 MG TABLET PO SCH ×2 (06:50→16:54)
[2021-10-07 07:03] LABS: BASOPHILS % (AUTO) 0.6 % (0.0-2.0); EOSINOPHILS % (AUTO) 0.8 % (1.0-6.0); HEMATOCRIT 39.9 % (41-53); HEMOGLOBIN 13.6 g/dL (13.5-17.5); LYMPHOCYTES # (AUTO) 2.3 K/uL (1.0-4.8); LYMPHOCYTES % (AUTO) 22.7 % (22.0-44.0); MEAN CORPUSCULAR HEMOGLOBIN 26.4 pg (26.0-34.0); MEAN CORPUSCULAR HGB CONC 34.1 G/dL (31.0-37.0); MEAN CORPUSCULAR VOLUME 77 fL (80-100); MONOCYTES # (AUTO) 0.7 K/uL (0.1-1.0); NEUTROPHILS # (AUTO) 7.1 K/uL (1.8-7.7); NEUTROPHILS % (AUTO) 68.9 % (40.0-70.0); PLATELET COUNT (AUTO) 365 K/uL (150-450); RED BLOOD CELL COUNT(AUTO) 5.16 MIL/uL (4.50-5.90)
[2021-10-07 07:09] LABS: COVID AG,FIA SOURCE NASAL SWAB
[2021-10-07 07:19] LABS: HEMOGLOBIN A1C 8.7 % (3.8-5.6)
[2021-10-07 07:34] LABS: ALANINE AMINOTRANSFERASE 35 U/L (12-78); ALBUMIN 3.7 g/dL (3.4-5.0); ALKALINE PHOSPHATASE 116 U/L (46-116); ANION GAP 9 mmol/L (8-16); ASPARTATE AMINOTRANSFERASE 18 U/L (15-37); BILIRUBIN,TOTAL 0.3 mg/dL (0.1-1.0); CARBON DIOXIDE 26 mmol/L (22-29); CHLORIDE 99 mmol/L (98-107); CHOL/HDL RATIO 5.3 (4.2-7.3); CHOLESTEROL 175 mg/dL (131-200); CREATININE 0.61 mg/dL (0.60-1.30); GLUCOSE,RANDOM 118 mg/dL (70-110); HDL CHOLESTEROL 33 mg/dL (40-60); LDL CHOL (CALC.) 97 mg/dL (0-130); POTASSIUM 4.1 mmol/L (3.5-5.1); SODIUM SERUM 134 mmol/L (136-145); TOTAL PROTEIN, SERUM 7.9 g/dL (6.4-8.2); TRIGLYCERIDES 225 mg/dL (15-150); UREA NITROGEN, BLOOD 6 mg/dL (7-18)
[2021-10-07 07:44] LABS: GLOMERULAR FILTR. RATE CALC > 60 mL/min (>60)
[2021-10-07] MEDS: PIOGLITAZONE HCL 45 MG TABLET PO SCH (08:24)
[2021-10-07] MEDS: SERTRALINE HCL 100 MG TABLET PO SCH (08:24)
[2021-10-07] MEDS: GABAPENTIN 300 MG CAPSULE PO SCH ×3 (08:24→16:54)
[2021-10-07] MEDS: ASPIRIN 81 MG DR TABLET PO SCH (08:25)
[2021-10-07] MEDS: FAMOTIDINE 20 MG TABLET PO SCH ×2 (08:25→16:54)
[2021-10-07] MEDS: ARIPiprazole 5 MG TABLET PO SCH (08:25)
[2021-10-07] MEDS: BENAZEPRIL HCL 20 MG TABLET PO SCH (08:25)
[2021-10-07 08:30] VITALS: BP 152/81
[2021-10-07] MEDS: INSULIN GLARGINE,HUM.REC.ANLOG 100 UNITS/ML SQ SCH ×2 (09:11→20:46)
[2021-10-07 09:30] LABS: GLUCOMETER DEV NAME(LOC) 3EX.2; GLUCOSE,POINT OF CARE 100 MG/DL (70-110)
[2021-10-07] MEDS: LOPERAMIDE HCL 2 MG CAPSULE PO PRN (10:33)
[2021-10-07 11:21] LABS: GLUCOMETER DEV NAME(LOC) 3EX.2; GLUCOSE,POINT OF CARE 113 MG/DL (70-110)
[2021-10-07 16:12] VITALS: BP 129/73
[2021-10-07 16:16] VITALS: BP 111/53
[2021-10-07 17:01] LABS: GLUCOMETER DEV NAME(LOC) 3E.I 2; GLUCOSE,POINT OF CARE 146 MG/DL (70-110)
[2021-10-07 20:51] LABS: GLUCOMETER DEV NAME(LOC) 3E.I 2; GLUCOSE,POINT OF CARE 118 MG/DL (70-110)
[2021-10-07] MEDS: ZOLPIDEM TARTRATE 10 MG TABLET PO PRN (22:39)
[2021-10-08 05:46] LABS: GLUCOMETER DEV NAME(LOC) 3E.I 2; GLUCOSE,POINT OF CARE 101 MG/DL (70-110)
[2021-10-08] MEDS: MetFORMIN HCL 500 MG TABLET PO SCH ×2 (06:42→16:31)
[2021-10-08 08:05] VITALS: BP 147/92
[2021-10-08] MEDS: FAMOTIDINE 20 MG TABLET PO SCH ×2 (08:53→16:31)
[2021-10-08] MEDS: BENAZEPRIL HCL 20 MG TABLET PO SCH (08:53)
[2021-10-08] MEDS: ASPIRIN 81 MG DR TABLET PO SCH (08:53)
[2021-10-08] MEDS: SERTRALINE HCL 100 MG TABLET PO SCH (08:53)
[2021-10-08] MEDS: ARIPiprazole 5 MG TABLET PO SCH (08:53)
[2021-10-08] MEDS: GABAPENTIN 300 MG CAPSULE PO SCH ×3 (08:54→16:31)
[2021-10-08] MEDS: PIOGLITAZONE HCL 45 MG TABLET PO SCH (08:54)
[2021-10-08] MEDS: LOPERAMIDE HCL 2 MG CAPSULE PO PRN (08:56)
[2021-10-08] MEDS: INSULIN GLARGINE,HUM.REC.ANLOG 100 UNITS/ML SQ SCH ×2 (09:24→20:18)
[2021-10-08 11:52] LABS: GLUCOMETER DEV NAME(LOC) 3EX.2; GLUCOSE,POINT OF CARE 95 MG/DL (70-110)
[2021-10-08 16:10] VITALS: BP 145/77
[2021-10-08 16:11] LABS: GLUCOMETER DEV NAME(LOC) 3E.I 2; GLUCOSE,POINT OF CARE 128 MG/DL (70-110)
[2021-10-08] MEDS: ZOLPIDEM TARTRATE 10 MG TABLET PO PRN (20:19)
[2021-10-08 20:21] LABS: GLUCOMETER DEV NAME(LOC) 3EX.2; GLUCOSE,POINT OF CARE 102 MG/DL (70-110)
[2021-10-09] MEDS: LORazepam 2 MG TABLET PO PRN (02:20)
[2021-10-09 06:01] LABS: GLUCOMETER DEV NAME(LOC) 3E.I 2; GLUCOSE,POINT OF CARE 89 MG/DL (70-110)
[2021-10-09] MEDS: INSULIN LISPRO 100 UNITS/ML SQ PRN ×2 (06:36→17:32)
[2021-10-09] MEDS: MetFORMIN HCL 500 MG TABLET PO SCH ×2 (06:58→16:32)
[2021-10-09] MEDS: ASPIRIN 81 MG DR TABLET PO SCH (08:16)
[2021-10-09] MEDS: GABAPENTIN 300 MG CAPSULE PO SCH ×3 (08:16→16:32)
[2021-10-09] MEDS: SERTRALINE HCL 100 MG TABLET PO SCH (08:16)
[2021-10-09] MEDS: ARIPiprazole 5 MG TABLET PO SCH (08:16)
[2021-10-09] MEDS: PIOGLITAZONE HCL 45 MG TABLET PO SCH (08:16)
[2021-10-09] MEDS: BENAZEPRIL HCL 20 MG TABLET PO SCH (08:16)
[2021-10-09] MEDS: FAMOTIDINE 20 MG TABLET PO SCH ×2 (08:17→16:32)
[2021-10-09 08:30] VITALS: BP 144/96
[2021-10-09 09:16] LABS: GLUCOMETER DEV NAME(LOC) 3E.I 2; GLUCOSE,POINT OF CARE 98 MG/DL (70-110)
[2021-10-09 12:06] LABS: GLUCOMETER DEV NAME(LOC) 3E.I 2; GLUCOSE,POINT OF CARE 98 MG/DL (70-110)
[2021-10-09] MEDS: LOPERAMIDE HCL 2 MG CAPSULE PO PRN (13:03)
[2021-10-09 16:12] VITALS: BP 154/98
[2021-10-09 16:26] LABS: GLUCOMETER DEV NAME(LOC) 3E.I 2; GLUCOSE,POINT OF CARE 210 MG/DL (70-110)
[2021-10-09] MEDS: ZOLPIDEM TARTRATE 10 MG TABLET PO PRN (20:07)
[2021-10-09 20:30] LABS: GLUCOMETER DEV NAME(LOC) 3E.I 2; GLUCOSE,POINT OF CARE 126 MG/DL (70-110)
[2021-10-10 05:47] LABS: GLUCOMETER DEV NAME(LOC) 3E.I 2; GLUCOSE,POINT OF CARE 123 MG/DL (70-110)
[2021-10-10] MEDS: MetFORMIN HCL 500 MG TABLET PO SCH ×2 (06:34→16:20)
[2021-10-10 08:30] VITALS: BP 149/87
[2021-10-10] MEDS: FAMOTIDINE 20 MG TABLET PO SCH ×2 (08:49→16:21)
[2021-10-10] MEDS: SERTRALINE HCL 100 MG TABLET PO SCH (08:49)
[2021-10-10] MEDS: ARIPiprazole 5 MG TABLET PO SCH (08:49)
[2021-10-10] MEDS: ASPIRIN 81 MG DR TABLET PO SCH (08:50)
[2021-10-10] MEDS: PIOGLITAZONE HCL 45 MG TABLET PO SCH (08:50)
[2021-10-10] MEDS: BENAZEPRIL HCL 20 MG TABLET PO SCH (08:50)
[2021-10-10] MEDS: GABAPENTIN 300 MG CAPSULE PO SCH ×3 (08:50→16:20)
[2021-10-10] MEDS: LOPERAMIDE HCL 2 MG CAPSULE PO PRN (10:20)
[2021-10-10 10:56] LABS: GLUCOMETER DEV NAME(LOC) 3E.I 2; GLUCOSE,POINT OF CARE 142 MG/DL (70-110)
[2021-10-10] MEDS: INSULIN LISPRO 100 UNITS/ML SQ PRN ×2 (11:43→17:20)
[2021-10-10 16:06] LABS: GLUCOMETER DEV NAME(LOC) 3E.I 2; GLUCOSE,POINT OF CARE 158 MG/DL (70-110)
[2021-10-10 20:36] LABS: GLUCOMETER DEV NAME(LOC) 3E.I 2; GLUCOSE,POINT OF CARE 102 MG/DL (70-110)
[2021-10-10] MEDS: ZOLPIDEM TARTRATE 10 MG TABLET PO PRN (21:15)
[2021-10-11] MEDS: LORazepam 2 MG TABLET PO PRN (04:01)
[2021-10-11 06:11] LABS: GLUCOMETER DEV NAME(LOC) 3E.I 2; GLUCOSE,POINT OF CARE 120 MG/DL (70-110)
[2021-10-11] MEDS: MetFORMIN HCL 500 MG TABLET PO SCH ×2 (07:00→17:34)
[2021-10-11] MEDS: FAMOTIDINE 20 MG TABLET PO SCH ×2 (08:22→17:34)
[2021-10-11] MEDS: ASPIRIN 81 MG DR TABLET PO SCH (08:22)
[2021-10-11] MEDS: ARIPiprazole 5 MG TABLET PO SCH (08:22)
[2021-10-11] MEDS: BENAZEPRIL HCL 20 MG TABLET PO SCH (08:22)
[2021-10-11] MEDS: SERTRALINE HCL 100 MG TABLET PO SCH (08:23)
[2021-10-11] MEDS: GABAPENTIN 300 MG CAPSULE PO SCH ×3 (08:23→17:33)
[2021-10-11] MEDS: PIOGLITAZONE HCL 45 MG TABLET PO SCH (08:23)
[2021-10-11 09:52] VITALS: BP 155/89
[2021-10-11 11:36] LABS: GLUCOMETER DEV NAME(LOC) 3E.I 2; GLUCOSE,POINT OF CARE 108 MG/DL (70-110)
[2021-10-11 16:21] LABS: GLUCOMETER DEV NAME(LOC) 3E.I 2; GLUCOSE,POINT OF CARE 141 MG/DL (70-110)
[2021-10-11] MEDS: INSULIN LISPRO 100 UNITS/ML SQ PRN ×2 (17:52→21:05)
[2021-10-11] MEDS: LOPERAMIDE HCL 2 MG CAPSULE PO PRN (20:32)
[2021-10-11 21:11] LABS: GLUCOMETER DEV NAME(LOC) 3E.I 2; GLUCOSE,POINT OF CARE 145 MG/DL (70-110)
[2021-10-11] MEDS: ZOLPIDEM TARTRATE 10 MG TABLET PO PRN (22:03)
[2021-10-12] MEDS: LORazepam 2 MG TABLET PO PRN (03:30)
[2021-10-12 06:11] LABS: GLUCOMETER DEV NAME(LOC) 3E.I 2; GLUCOSE,POINT OF CARE 120 MG/DL (70-110)
[2021-10-12] MEDS: MetFORMIN HCL 500 MG TABLET PO SCH (07:02)
[2021-10-12] MEDS: ARIPiprazole 5 MG TABLET PO SCH (09:02)
[2021-10-12] MEDS: PIOGLITAZONE HCL 45 MG TABLET PO SCH (09:02)
[2021-10-12] MEDS: GABAPENTIN 300 MG CAPSULE PO SCH ×2 (09:02→13:29)
[2021-10-12] MEDS: ASPIRIN 81 MG DR TABLET PO SCH (09:02)
[2021-10-12] MEDS: BENAZEPRIL HCL 20 MG TABLET PO SCH (09:02)
[2021-10-12] MEDS: FAMOTIDINE 20 MG TABLET PO SCH (09:02)
[2021-10-12] MEDS: SERTRALINE HCL 100 MG TABLET PO SCH (09:03)
[2021-10-12] MEDS: LOPERAMIDE HCL 2 MG CAPSULE PO PRN (09:05)
[2021-10-12] MEDS ORDERED: SERT-162 PO (11:00)
[2021-10-12] MEDS ORDERED: ARIP5TAB37 PO ×2 (11:00→15:13)
[2021-10-12 11:36] LABS: GLUCOMETER DEV NAME(LOC) 3EX.2; GLUCOSE,POINT OF CARE 121 MG/DL (70-110)
[2021-10-12] MEDS ORDERED: SERT-440 PO (15:13)
[2021-10-25] MEDS ORDERED: FENO160T16 PO (11:34)
[2021-10-25] MEDS ORDERED: INSU100I3 SQ (11:34)
[2021-10-25] MEDS ORDERED: INSU3INS3 SQ (11:34)
== END 2021-10-12 15:00 | disposition home or self-care (01) | DRG 885 ==
LOC: EMS 10:41 → 3EX 14:58
PROVIDERS: ADMIT Psychiatry & Neurology Psychiatry; ATTEND Psychiatry & Neurology Psychiatry
PROC: 5A09357 Assistance with Respiratory Ventilation, Less than 24 Consecutive Hours, Continuous Positive Airway Pressure (ICD-10-PCS; principal; 2021-10-02)
DX: F25.1 Schizoaffective disorder, depressive type (principal); E11.65 Type 2 diabetes mellitus with hyperglycemia; E87.1 Hypo-osmolality and hyponatremia; R45.851 Suicidal ideations; Z68.42 Body mass index [BMI] 45.0-49.9, adult; D72.829 Elevated white blood cell count, unspecified; Z20.822 Contact with and (suspected) exposure to COVID-19; E11.40 Type 2 diabetes mellitus with diabetic neuropathy, unspecified; R00.0 Tachycardia, unspecified; E66.9 Obesity, unspecified; E78.5 Hyperlipidemia, unspecified; G47.30 Sleep apnea, unspecified; I10 Essential (primary) hypertension; K21.9 Gastro-esophageal reflux disease without esophagitis; Z79.899 Other long term (current) drug therapy; Z91.51 Personal history of suicidal behavior; Z79.4 Long term (current) use of insulin; Z79.82 Long term (current) use of aspirin
CPT/HCPCS: 80053; 80061; 82962; 83036; 85025; 94660; 99285; G0378; G0480; J1815

== ENCOUNTER 2022-06-18 13:51 | Emergency (ER) | payer MEDICARE, OTHER ==
[~2022-06-18] VITALS: Ht 172.7 cm; Wt 135.0 kg
[~2022-06-18 13:51] MED LIST changes: +ARIP5TAB37 PO; +FENO160T16 PO; -FENO160T75 PO; -GEMF-77 PO; -INSLAN SQ; +INSU3INS3 SQ; -TRAZ-252 PO
[2022-06-18] MEDS ORDERED: ATOR40TA71 PO (14:01)
[2022-06-18] MEDS ORDERED: BENA20TA83 PO (14:01)
[2022-06-18] MEDS ORDERED: INSU100I15 SQ (14:01)
[2022-06-18] MEDS ORDERED: TRAZ-252 PO (14:01)
[2022-06-18 14:50] LABS: AMPHET/METH SCREEN,URINE NEGATIVE (NEGATIVE); BARBITURATE SCREEN, URINE NEGATIVE (NEGATIVE); BENZODIAZEPINES SCREEN,URINE NEGATIVE (NEGATIVE); CANNABINOID SCREEN,URINE NEGATIVE (NEGATIVE); COCAINE SCREEN,URINE NEGATIVE (NEGATIVE); METHADONE SCREEN, URINE NEGATIVE (NEGATIVE); OPIATE SCREEN,URINE NEGATIVE (NEGATIVE); PHENCYCLIDINE SCREEN,URINE NEGATIVE (NEGATIVE)
[2022-06-18 15:07] LABS: BASOPHILS % (AUTO) 0.2 % (0.0-2.0); EOSINOPHILS % (AUTO) 1.1 % (1.0-6.0); HEMATOCRIT 38.8 % (41-53); HEMOGLOBIN 12.8 g/dL (13.5-17.5); LYMPHOCYTES # (AUTO) 3.1 K/uL (1.0-4.8); LYMPHOCYTES % (AUTO) 26.7 % (22.0-44.0); MEAN CORPUSCULAR HEMOGLOBIN 26.7 pg (26.0-34.0); MEAN CORPUSCULAR HGB CONC 33.1 G/dL (31.0-37.0); MEAN CORPUSCULAR VOLUME 81 fL (80-100); MONOCYTES # (AUTO) 0.9 K/uL (0.1-1.0); NEUTROPHILS # (AUTO) 7.5 K/uL (1.8-7.7); PLATELET COUNT (AUTO) 302 K/uL (150-450); RED BLOOD CELL COUNT(AUTO) 4.82 MIL/uL (4.50-5.90); RED CELL DISTRIBUTION WIDTH 14.9 % (11.5-14.5)
[2022-06-18 15:16] LABS: ANION GAP 9 mmol/L (8-16); CARBON DIOXIDE 27 mmol/L (22-29); CHLORIDE 100 mmol/L (98-107); GLOMERULAR FILTR. RATE CALC > 60 mL/min (>60); GLUCOSE,RANDOM 239 mg/dL (70-110); POTASSIUM 3.9 mmol/L (3.5-5.1); SODIUM SERUM 136 mmol/L (136-145); UREA NITROGEN, BLOOD 17 mg/dL (7-18)
[2022-06-18 15:22] LABS: ALANINE AMINOTRANSFERASE 35 U/L (12-78); ALBUMIN 3.7 g/dL (3.4-5.0); ALKALINE PHOSPHATASE 105 U/L (46-116); ASPARTATE AMINOTRANSFERASE 18 U/L (15-37); BILIRUBIN,TOTAL 0.1 mg/dL (0.1-1.0); TOTAL PROTEIN, SERUM 7.2 g/dL (6.4-8.2)
[2022-06-18] MEDS ORDERED: ACETAMINOPHEN 500 MG TABLET PO ONE (15:30)
[2022-06-18 16:05] LABS: COVID AG,FIA SOURCE NASOPHARYNGEAL
[2022-06-18 17:00] VITALS: BP 128/74
== END 2022-06-18 17:30 | disposition home or self-care (01) ==
LOC: EMS 13:55
DX: F25.1 Schizoaffective disorder, depressive type (principal); E11.65 Type 2 diabetes mellitus with hyperglycemia; R45.851 Suicidal ideations; G47.30 Sleep apnea, unspecified; E11.9 Type 2 diabetes mellitus without complications; E78.00 Pure hypercholesterolemia, unspecified; Z88.8 Allergy status to other drugs, medicaments and biological substances; Z20.822 Contact with and (suspected) exposure to COVID-19
CPT/HCPCS: 99284; 87426; 80053; 85025; 36415; 80307 ×2; G0480

== ENCOUNTER 2022-06-19 12:56 | Inpatient (IN) | payer MEDICARE, MEDICAID ==
[~2022-06-19] VITALS: Ht 172.7 cm; Wt 117.5 kg
[~2022-06-19 12:56] MED LIST changes: -ARIP10TA38 PO; -ARIP5TAB37 PO; -ASPI-1444 PO; +ATOR40TA71 PO; -FAMO20 PO; -FENO160T16 PO; -GABA-1181 PO; +INSU100I15 SQ; -INSU100I3 SQ; -INSU3INS3 SQ; -PIOG45TA4 PO; -SERT-440 PO; +TRAZ-252 PO
[2022-06-19 13:28] LABS: BASOPHILS % (AUTO) 0.4 % (0.0-2.0); HEMATOCRIT 41.9 % (41-53); HEMOGLOBIN 13.7 g/dL (13.5-17.5); LYMPHOCYTES % (AUTO) 26.6 % (22.0-44.0); MEAN CORPUSCULAR HEMOGLOBIN 26.5 pg (26.0-34.0); MEAN CORPUSCULAR HGB CONC 32.8 G/dL (31.0-37.0); MEAN CORPUSCULAR VOLUME 81 fL (80-100); MONOCYTES # (AUTO) 0.9 K/uL (0.1-1.0); MONOCYTES % (AUTO) 8.1 % (2.0-9.0); NEUTROPHILS # (AUTO) 7.2 K/uL (1.8-7.7); NEUTROPHILS % (AUTO) 63.9 % (40.0-70.0); PLATELET COUNT (AUTO) 344 K/uL (150-450); RED BLOOD CELL COUNT(AUTO) 5.18 MIL/uL (4.50-5.90); RED CELL DISTRIBUTION WIDTH 14.8 % (11.5-14.5)
[2022-06-19 13:36] LABS: ANION GAP 8 mmol/L (8-16); CALCIUM, TOTAL 9.5 mg/dL (8.8-10.5); CARBON DIOXIDE 26 mmol/L (22-29); CHLORIDE 100 mmol/L (98-107); CREATININE 0.77 mg/dL (0.60-1.30); GLOMERULAR FILTR. RATE CALC > 60 mL/min (>60); GLUCOSE,RANDOM 162 mg/dL (70-110); POTASSIUM 3.8 mmol/L (3.5-5.1); SODIUM SERUM 134 mmol/L (136-145)
[2022-06-19 13:42] LABS: ALANINE AMINOTRANSFERASE 37 U/L (12-78); ALBUMIN 4.1 g/dL (3.4-5.0); ALKALINE PHOSPHATASE 108 U/L (46-116); ASPARTATE AMINOTRANSFERASE 18 U/L (15-37); BILIRUBIN,TOTAL 0.2 mg/dL (0.1-1.0); TOTAL PROTEIN, SERUM 8.1 g/dL (6.4-8.2)
[2022-06-19 13:54] LABS: COVID AG,FIA SOURCE NASAL SWAB
[2022-06-19] MEDS ORDERED: LORazepam 2 MG TABLET PO PRN (14:00)
[2022-06-19] MEDS ORDERED: HALOPERIDOL 5 MG TABLET PO PRN (14:00)
[2022-06-19 16:33] LABS: APPEARANCE,URINE CLEAR (CLEAR); BILIRUBIN,URINE NEGATIVE (NEGATIVE); GLUCOSE, URINE (UA) 300-500 mg/dL (NEGATIVE); KETONES,URINE NEGATIVE (NEGATIVE); LEUKOCYTE ESTERASE ,URINE NEGATIVE (NEGATIVE); NITRATE,URINE NEGATIVE (NEGATIVE); OCCULT BLOOD,URINE NEGATIVE (NEGATIVE); PH,URINE 6.5 (5.0-8.0); PROTEIN,URINE NEGATIVE (NEGATIVE); SPECIFIC GRAVITIY, URINE 1.012 (1.003-1.030); UROBILINOGEN,URINE <=1.0 mg/dL (<=1.0)
[2022-06-19 16:40] LABS: AMPHET/METH SCREEN,URINE NEGATIVE (NEGATIVE); BARBITURATE SCREEN, URINE NEGATIVE (NEGATIVE); BENZODIAZEPINES SCREEN,URINE NEGATIVE (NEGATIVE); CANNABINOID SCREEN,URINE NEGATIVE (NEGATIVE); COCAINE SCREEN,URINE NEGATIVE (NEGATIVE); METHADONE SCREEN, URINE NEGATIVE (NEGATIVE); OPIATE SCREEN,URINE NEGATIVE (NEGATIVE); PHENCYCLIDINE SCREEN,URINE NEGATIVE (NEGATIVE)
[2022-06-19 17:01] LABS: BACTERIA,URINE None Seen /HPF (None Seen); RBC,URINE None Seen /HPF (0-2); WBC,URINE None Seen /HPF (0-5)
[2022-06-20 02:38] VITALS: BP 129/87
[2022-06-20 02:41] LABS: GLUCOMETER DEV NAME(LOC) BV2X.2; GLUCOSE,POINT OF CARE 157 MG/DL (70-110)
[2022-06-20] MEDS ORDERED: PNEUMOCOCCAL VACCINE POLYVALENT 0.5 ML VIAL [PPSV23] IM. ONE (05:45)
[2022-06-20 08:07] VITALS: BP 140/80
[2022-06-20] MEDS ORDERED: BACITRACIN 28 GM OINTMENT TP PRN (09:15)
[2022-06-20] MEDS ORDERED: DOCUSATE SODIUM 100 MG CAPSULE PO PRN (09:15)
[2022-06-20] MEDS ORDERED: ALBUTEROL SULFATE HFA 90 MCG/PUFF 8 GM INHALER IH PRN (09:15)
[2022-06-20] MEDS ORDERED: GLUCAGON,HUMAN RECOMBINANT 1 MG VIAL IM PRN (09:15)
[2022-06-20] MEDS: BENAZEPRIL HCL 20 MG TABLET PO SCH (09:15)
[2022-06-20] MEDS ORDERED: PETROLATUM,WHITE 28 GM JELLY TP PRN (09:15)
[2022-06-20] MEDS ORDERED: MAG HYDROX/AL HYDROX/SIMETH ES 30 ML SUSPENSION UDCUP PO PRN (09:15)
[2022-06-20] MEDS ORDERED: MAGNESIUM HYDROXIDE SUSPENSION 30 ML UDCUP PO PRN (09:15)
[2022-06-20] MEDS ORDERED: OMEPRAZOLE 20 MG CAPSULE PO PRN (09:15)
[2022-06-20] MEDS ORDERED: CloNIDine HCL 0.1 MG TABLET PO PRN (09:15)
[2022-06-20] MEDS ORDERED: ONDANSETRON HCL 4 MG TABLET PO PRN (09:15)
[2022-06-20] MEDS ORDERED: IBUPROFEN 600 MG TABLET PO PRN (09:15)
[2022-06-20] MEDS: INSULIN LISPRO 100 UNITS/ML SQ PRN ×3 (11:18→20:09)
[2022-06-20 11:20] LABS: GLUCOMETER DEV NAME(LOC) BV2X.2; GLUCOSE,POINT OF CARE 145 MG/DL (70-110)
[2022-06-20] MEDS: MetFORMIN HCL 500 MG TABLET PO SCH (16:04)
[2022-06-20 16:56] LABS: GLUCOMETER DEV NAME(LOC) BV2X.2; GLUCOSE,POINT OF CARE 187 MG/DL (70-110)
[2022-06-20] MEDS: ZOLPIDEM TARTRATE 10 MG TABLET PO PRN (20:10)
[2022-06-20 20:21] LABS: GLUCOMETER DEV NAME(LOC) BV2X.2; GLUCOSE,POINT OF CARE 144 MG/DL (70-110)
[2022-06-21] MEDS: MetFORMIN HCL 500 MG TABLET PO SCH ×2 (06:23→17:40)
[2022-06-21 06:26] LABS: GLUCOMETER DEV NAME(LOC) BV2X.2; GLUCOSE,POINT OF CARE 131 MG/DL (70-110)
[2022-06-21] MEDS: INSULIN LISPRO 100 UNITS/ML SQ PRN ×4 (06:42→20:53)
[2022-06-21 07:13] VITALS: BP 148/88
[2022-06-21 09:00] VITALS: BP 138/78
[2022-06-21] MEDS: BENAZEPRIL HCL 20 MG TABLET PO SCH (10:04)
[2022-06-21] MEDS: ATORVASTATIN CALCIUM 40 MG TABLET PO SCH (10:40)
[2022-06-21 12:12] LABS: GLUCOMETER DEV NAME(LOC) BV2S.; GLUCOSE,POINT OF CARE 124 MG/DL (70-110)
[2022-06-21 18:12] LABS: GLUCOMETER DEV NAME(LOC) BV2S.; GLUCOSE,POINT OF CARE 225 MG/DL (70-110)
[2022-06-21 20:15] VITALS: BP 120/79
[2022-06-21 20:36] LABS: GLUCOMETER DEV NAME(LOC) BV2X.2; GLUCOSE,POINT OF CARE 161 MG/DL (70-110)
[2022-06-22 06:06] LABS: GLUCOMETER DEV NAME(LOC) BV2X.2; GLUCOSE,POINT OF CARE 137 MG/DL (70-110)
[2022-06-22] MEDS: INSULIN LISPRO 100 UNITS/ML SQ PRN ×3 (06:43→20:42)
[2022-06-22] MEDS: MetFORMIN HCL 500 MG TABLET PO SCH ×2 (06:45→16:41)
[2022-06-22 08:11] VITALS: BP 145/82
[2022-06-22] MEDS: ATORVASTATIN CALCIUM 40 MG TABLET PO SCH (08:38)
[2022-06-22] MEDS: BENAZEPRIL HCL 20 MG TABLET PO SCH (08:39)
[2022-06-22 11:36] LABS: GLUCOMETER DEV NAME(LOC) BV2X.2; GLUCOSE,POINT OF CARE 101 MG/DL (70-110)
[2022-06-22 16:51] LABS: GLUCOMETER DEV NAME(LOC) BV2X.2; GLUCOSE,POINT OF CARE 138 MG/DL (70-110)
[2022-06-22 20:46] LABS: GLUCOMETER DEV NAME(LOC) BV2X.2; GLUCOSE,POINT OF CARE 154 MG/DL (70-110)
[2022-06-22 21:08] VITALS: BP 137/86
[2022-06-23 06:25] LABS: GLUCOMETER DEV NAME(LOC) BV2X.2; GLUCOSE,POINT OF CARE 132 MG/DL (70-110)
[2022-06-23] MEDS: MetFORMIN HCL 500 MG TABLET PO SCH ×2 (06:47→16:26)
[2022-06-23 08:20] VITALS: BP 130/80
[2022-06-23] MEDS: ARIPiprazole 10 MG TABLET PO SCH (08:36)
[2022-06-23] MEDS: ATORVASTATIN CALCIUM 40 MG TABLET PO SCH (08:36)
[2022-06-23] MEDS: BENAZEPRIL HCL 20 MG TABLET PO SCH (08:36)
[2022-06-23 11:26] LABS: GLUCOMETER DEV NAME(LOC) BV2X.2; GLUCOSE,POINT OF CARE 102 MG/DL (70-110)
[2022-06-23 17:21] LABS: GLUCOMETER DEV NAME(LOC) BV2X.2; GLUCOSE,POINT OF CARE 157 MG/DL (70-110)
[2022-06-23] MEDS: INSULIN LISPRO 100 UNITS/ML SQ PRN ×2 (17:36→21:07)
[2022-06-23 21:16] LABS: GLUCOMETER DEV NAME(LOC) BV2X.2; GLUCOSE,POINT OF CARE 144 MG/DL (70-110)
[2022-06-23 21:54] VITALS: BP 115/65
[2022-06-24 06:06] LABS: GLUCOMETER DEV NAME(LOC) BV2X.2; GLUCOSE,POINT OF CARE 137 MG/DL (70-110)
[2022-06-24] MEDS: MetFORMIN HCL 500 MG TABLET PO SCH ×2 (06:43→17:16)
[2022-06-24] MEDS: INSULIN LISPRO 100 UNITS/ML SQ PRN ×3 (06:46→20:29)
[2022-06-24 08:12] VITALS: BP 142/76
[2022-06-24] MEDS: ATORVASTATIN CALCIUM 40 MG TABLET PO SCH (08:21)
[2022-06-24] MEDS: ARIPiprazole 10 MG TABLET PO SCH (08:21)
[2022-06-24] MEDS: BENAZEPRIL HCL 20 MG TABLET PO SCH (08:21)
[2022-06-24 09:36] LABS: GLUCOMETER DEV NAME(LOC) POC.BV
[2022-06-24 11:41] LABS: GLUCOMETER DEV NAME(LOC) BV2X.2; GLUCOSE,POINT OF CARE 111 MG/DL (70-110)
[2022-06-24] MEDS: LOPERAMIDE HCL 2 MG CAPSULE PO PRN (12:39)
[2022-06-24 16:51] LABS: GLUCOMETER DEV NAME(LOC) BV2X.2; GLUCOSE,POINT OF CARE 114 MG/DL (70-110)
[2022-06-24 20:05] VITALS: BP 130/86
[2022-06-24 20:41] LABS: GLUCOMETER DEV NAME(LOC) BV2X.2; GLUCOSE,POINT OF CARE 131 MG/DL (70-110)
[2022-06-25] MEDS: MetFORMIN HCL 500 MG TABLET PO SCH ×2 (06:13→16:11)
[2022-06-25 06:16] LABS: GLUCOMETER DEV NAME(LOC) BV2X.2; GLUCOSE,POINT OF CARE 138 MG/DL (70-110)
[2022-06-25] MEDS: INSULIN LISPRO 100 UNITS/ML SQ PRN ×3 (06:21→20:25)
[2022-06-25 08:07] VITALS: BP 122/67
[2022-06-25] MEDS: ARIPiprazole 10 MG TABLET PO SCH (09:05)
[2022-06-25] MEDS: BENAZEPRIL HCL 20 MG TABLET PO SCH (09:05)
[2022-06-25] MEDS: ATORVASTATIN CALCIUM 40 MG TABLET PO SCH (09:05)
[2022-06-25] MEDS: LOPERAMIDE HCL 2 MG CAPSULE PO PRN (11:14)
[2022-06-25 12:01] LABS: GLUCOMETER DEV NAME(LOC) BV2X.2; GLUCOSE,POINT OF CARE 112 MG/DL (70-110)
[2022-06-25 16:41] LABS: GLUCOMETER DEV NAME(LOC) BV2X.2; GLUCOSE,POINT OF CARE 151 MG/DL (70-110)
[2022-06-25 20:03] VITALS: BP 108/71
[2022-06-25 21:26] LABS: GLUCOMETER DEV NAME(LOC) BV2X.2; GLUCOSE,POINT OF CARE 126 MG/DL (70-110)
[2022-06-26] MEDS: MetFORMIN HCL 500 MG TABLET PO SCH ×2 (06:10→16:47)
[2022-06-26 06:16] LABS: GLUCOMETER DEV NAME(LOC) BV2X.2; GLUCOSE,POINT OF CARE 132 MG/DL (70-110)
[2022-06-26] MEDS: INSULIN LISPRO 100 UNITS/ML SQ PRN ×2 (06:38→12:14)
[2022-06-26 07:55] LABS: CHOL/HDL RATIO 3.6 (4.2-7.3)
[2022-06-26 08:35] VITALS: BP 102/61
[2022-06-26] MEDS: ARIPiprazole 10 MG TABLET PO SCH (08:46)
[2022-06-26] MEDS: BENAZEPRIL HCL 20 MG TABLET PO SCH (08:46)
[2022-06-26] MEDS: ATORVASTATIN CALCIUM 40 MG TABLET PO SCH (08:46)
[2022-06-26 12:21] LABS: GLUCOMETER DEV NAME(LOC) BV2X.2; GLUCOSE,POINT OF CARE 147 MG/DL (70-110)
[2022-06-26 20:45] VITALS: BP 114/66
[2022-06-26 22:16] LABS: GLUCOMETER DEV NAME(LOC) BV2S.; GLUCOSE,POINT OF CARE 117 MG/DL (70-110)
[2022-06-27 04:11] LABS: GLUCOMETER DEV NAME(LOC) BV2X.2; GLUCOSE,POINT OF CARE 117 MG/DL (70-110)
[2022-06-27 06:36] LABS: GLUCOMETER DEV NAME(LOC) BV2X.2; GLUCOSE,POINT OF CARE 128 MG/DL (70-110)
[2022-06-27] MEDS: MetFORMIN HCL 500 MG TABLET PO SCH ×2 (07:06→16:52)
[2022-06-27] MEDS: INSULIN LISPRO 100 UNITS/ML SQ PRN ×3 (07:37→21:42)
[2022-06-27] MEDS: ATORVASTATIN CALCIUM 40 MG TABLET PO SCH (08:49)
[2022-06-27] MEDS: BENAZEPRIL HCL 20 MG TABLET PO SCH (08:49)
[2022-06-27] MEDS: SALICYLIC ACID 40% PATCH TP SCH (08:50)
[2022-06-27] MEDS: ARIPiprazole 10 MG TABLET PO SCH (08:50)
[2022-06-27 09:08] VITALS: BP 120/67
[2022-06-27] MEDS: LOPERAMIDE HCL 2 MG CAPSULE PO PRN (09:25)
[2022-06-27 11:36] LABS: GLUCOMETER DEV NAME(LOC) BV2X.2; GLUCOSE,POINT OF CARE 111 MG/DL (70-110)
[2022-06-27 16:32] LABS: GLUCOMETER DEV NAME(LOC) BV2X.2; GLUCOSE,POINT OF CARE 173 MG/DL (70-110)
[2022-06-27 20:08] VITALS: BP 101/68
[2022-06-27 21:00] LABS: GLUCOMETER DEV NAME(LOC) BV2X.2; GLUCOSE,POINT OF CARE 121 MG/DL (70-110)
[2022-06-28 06:22] LABS: GLUCOMETER DEV NAME(LOC) BV2X.2; GLUCOSE,POINT OF CARE 122 MG/DL (70-110)
[2022-06-28] MEDS: MetFORMIN HCL 500 MG TABLET PO SCH ×2 (06:50→16:39)
[2022-06-28] MEDS: INSULIN LISPRO 100 UNITS/ML SQ PRN ×4 (06:52→20:43)
[2022-06-28 08:08] VITALS: BP 100/52
[2022-06-28] MEDS: BENAZEPRIL HCL 20 MG TABLET PO SCH (08:11)
[2022-06-28] MEDS: ARIPiprazole 10 MG TABLET PO SCH ×2 (08:11→08:15)
[2022-06-28] MEDS: ATORVASTATIN CALCIUM 40 MG TABLET PO SCH (08:11)
[2022-06-28] MEDS: LOPERAMIDE HCL 2 MG CAPSULE PO PRN (09:21)
[2022-06-28 11:47] LABS: GLUCOMETER DEV NAME(LOC) BV2X.2; GLUCOSE,POINT OF CARE 123 MG/DL (70-110)
[2022-06-28 16:41] LABS: GLUCOMETER DEV NAME(LOC) BV2X.2; GLUCOSE,POINT OF CARE 156 MG/DL (70-110)
[2022-06-28 20:13] VITALS: BP 127/71
[2022-06-28 20:36] LABS: GLUCOMETER DEV NAME(LOC) BV2X.2; GLUCOSE,POINT OF CARE 122 MG/DL (70-110)
[2022-06-29] MEDS: ZOLPIDEM TARTRATE 10 MG TABLET PO PRN (00:11)
[2022-06-29 06:16] LABS: GLUCOMETER DEV NAME(LOC) BV2X.2; GLUCOSE,POINT OF CARE 119 MG/DL (70-110)
[2022-06-29] MEDS: MetFORMIN HCL 500 MG TABLET PO SCH ×2 (06:18→17:04)
[2022-06-29 08:14] VITALS: BP 122/69
[2022-06-29] MEDS: ARIPiprazole 10 MG TABLET PO SCH (08:34)
[2022-06-29] MEDS: SALICYLIC ACID 40% PATCH TP SCH (08:34)
[2022-06-29] MEDS: BENAZEPRIL HCL 20 MG TABLET PO SCH (08:34)
[2022-06-29 08:39] LABS: C.DIFF GDH ANTIGEN, Stool Negative (Negative); C.DIFF TOXINS A&B, Stool Negative (Negative)
[2022-06-29] MEDS: ATORVASTATIN CALCIUM 40 MG TABLET PO SCH (08:42)
[2022-06-29] MEDS: LOPERAMIDE HCL 2 MG CAPSULE PO PRN (09:16)
[2022-06-29 11:26] LABS: GLUCOMETER DEV NAME(LOC) BV2X.2; GLUCOSE,POINT OF CARE 117 MG/DL (70-110)
[2022-06-29 16:46] LABS: GLUCOMETER DEV NAME(LOC) BV2X.2; GLUCOSE,POINT OF CARE 150 MG/DL (70-110)
[2022-06-29] MEDS: INSULIN LISPRO 100 UNITS/ML SQ PRN ×2 (16:51→20:50)
[2022-06-29 20:16] VITALS: BP 110/76
[2022-06-29 20:27] LABS: GLUCOMETER DEV NAME(LOC) BV2X.2; GLUCOSE,POINT OF CARE 132 MG/DL (70-110)
[2022-06-30 06:26] LABS: GLUCOMETER DEV NAME(LOC) BV2X.2; GLUCOSE,POINT OF CARE 116 MG/DL (70-110)
[2022-06-30] MEDS: MetFORMIN HCL 500 MG TABLET PO SCH ×2 (06:44→16:43)
[2022-06-30] MEDS: BENAZEPRIL HCL 20 MG TABLET PO SCH (08:26)
[2022-06-30] MEDS: ATORVASTATIN CALCIUM 40 MG TABLET PO SCH (08:26)
[2022-06-30] MEDS: ARIPiprazole 10 MG TABLET PO SCH (08:26)
[2022-06-30 08:53] VITALS: BP 132/66
[2022-06-30] MEDS: LOPERAMIDE HCL 2 MG CAPSULE PO PRN (10:36)
[2022-06-30 16:46] LABS: GLUCOMETER DEV NAME(LOC) BV2X.2; GLUCOSE,POINT OF CARE 158 MG/DL (70-110)
[2022-06-30] MEDS: INSULIN LISPRO 100 UNITS/ML SQ PRN ×2 (16:49→20:57)
[2022-06-30 20:12] VITALS: BP 142/81
[2022-06-30 21:06] LABS: GLUCOMETER DEV NAME(LOC) BV2X.2; GLUCOSE,POINT OF CARE 124 MG/DL (70-110)
[2022-06-30] MEDS: ACETAMINOPHEN 325 MG TABLET PO PRN (21:34)
[2022-07-01 05:51] LABS: GLUCOMETER DEV NAME(LOC) BV2X.2; GLUCOSE,POINT OF CARE 106 MG/DL (70-110)
[2022-07-01] MEDS: MetFORMIN HCL 500 MG TABLET PO SCH ×2 (06:11→16:48)
[2022-07-01 08:05] VITALS: BP 140/80
[2022-07-01] MEDS: SALICYLIC ACID 40% PATCH TP SCH (08:33)
[2022-07-01] MEDS: ATORVASTATIN CALCIUM 40 MG TABLET PO SCH (08:33)
[2022-07-01] MEDS: BENAZEPRIL HCL 20 MG TABLET PO SCH (08:33)
[2022-07-01] MEDS: ARIPiprazole 10 MG TABLET PO SCH (08:38)
[2022-07-01 11:41] LABS: GLUCOMETER DEV NAME(LOC) BV2X.2; GLUCOSE,POINT OF CARE 111 MG/DL (70-110)
[2022-07-01] MEDS: LOPERAMIDE HCL 2 MG CAPSULE PO PRN (14:35)
[2022-07-01] MEDS: INSULIN LISPRO 100 UNITS/ML SQ PRN ×2 (16:50→20:38)
[2022-07-01 19:06] LABS: GLUCOMETER DEV NAME(LOC) BV2X.2; GLUCOSE,POINT OF CARE 203 MG/DL (70-110)
[2022-07-01 20:31] LABS: GLUCOMETER DEV NAME(LOC) BV2X.2; GLUCOSE,POINT OF CARE 138 MG/DL (70-110)
[2022-07-01 20:57] VITALS: BP 109/60
[2022-07-01] MEDS: ACETAMINOPHEN 325 MG TABLET PO PRN (21:01)
[2022-07-02 06:26] LABS: GLUCOMETER DEV NAME(LOC) BV2X.2; GLUCOSE,POINT OF CARE 115 MG/DL (70-110)
[2022-07-02] MEDS: MetFORMIN HCL 500 MG TABLET PO SCH (06:41)
[2022-07-02 08:15] VITALS: BP 106/66
[2022-07-02] MEDS: ATORVASTATIN CALCIUM 40 MG TABLET PO SCH (08:22)
[2022-07-02] MEDS: BENAZEPRIL HCL 20 MG TABLET PO SCH (08:22)
[2022-07-02] MEDS: ARIPiprazole 10 MG TABLET PO SCH (08:27)
[2022-07-02 11:36] LABS: GLUCOMETER DEV NAME(LOC) BV2X.2; GLUCOSE,POINT OF CARE 114 MG/DL (70-110)
[2022-07-02] MEDS ORDERED: ARIP10TA38 PO (12:23)
[2022-07-02] MEDS ORDERED: BENA20TA83 PO (12:24)
[2022-07-03 16:47] LABS: GLUCOMETER DEV NAME(LOC) POC.BV
== END 2022-07-02 13:00 | disposition home or self-care (01) | DRG 885 ==
LOC: EMS 12:56 → B2X 06-20 01:28
PROVIDERS: ADMIT Psychiatry & Neurology Psychiatry; ATTEND Psychiatry & Neurology Psychiatry
DX: F25.1 Schizoaffective disorder, depressive type (principal); F33.2 Major depressive disorder, recurrent severe without psychotic features; R45.851 Suicidal ideations; I10 Essential (primary) hypertension; E78.00 Pure hypercholesterolemia, unspecified; E11.9 Type 2 diabetes mellitus without complications; Z20.822 Contact with and (suspected) exposure to COVID-19; E66.9 Obesity, unspecified; G47.33 Obstructive sleep apnea (adult) (pediatric); K59.00 Constipation, unspecified; Z59.00 Homelessness unspecified; Z88.8 Allergy status to other drugs, medicaments and biological substances; Z79.84 Long term (current) use of oral hypoglycemic drugs; Z79.899 Other long term (current) drug therapy; Z79.4 Long term (current) use of insulin; Z68.39 Body mass index [BMI] 39.0-39.9, adult; Z28.21 Immunization not carried out because of patient refusal
CPT/HCPCS: 80053; 80061; 80307; 81001; 82962; 85025; 87324; 87449; 99285; G0480

== ENCOUNTER 2022-08-27 12:34 | Inpatient (IN) | payer MEDICARE, MEDICAID ==
[~2022-08-27] VITALS: Ht 172.7 cm; Wt 280.0 kg
[~2022-08-27 12:34] MED LIST changes: +ARIP10TA38 PO; +INSLAN SQ; -INSU100I15 SQ; +INSU100I34 SQ; +METF-1211 PO; -METF-446 PO
[2022-08-27] MEDS ORDERED: LORazepam 1 MG TABLET PO ONE (13:00)
[2022-08-27] MEDS ORDERED: HALOPERIDOL 5 MG TABLET PO ONE (13:00)
[2022-08-27] MEDS ORDERED: DOCU100C33 PO (13:03)
[2022-08-27 13:21] LABS: COVID AG,FIA SOURCE NASOPHARYNGEAL
[2022-08-27 13:23] LABS: BASOPHILS % (AUTO) 0.1 % (0.0-2.0); EOSINOPHILS % (AUTO) 0.4 % (1.0-6.0); HEMATOCRIT 40.5 % (41-53); HEMOGLOBIN 13.1 g/dL (13.5-17.5); LYMPHOCYTES # (AUTO) 2.8 K/uL (1.0-4.8); LYMPHOCYTES % (AUTO) 22.4 % (22.0-44.0); MEAN CORPUSCULAR HEMOGLOBIN 26.3 pg (26.0-34.0); MEAN CORPUSCULAR HGB CONC 32.4 G/dL (31.0-37.0); MEAN CORPUSCULAR VOLUME 81 fL (80-100); MONOCYTES # (AUTO) 0.8 K/uL (0.1-1.0); MONOCYTES % (AUTO) 6.3 % (2.0-9.0); NEUTROPHILS # (AUTO) 8.9 K/uL (1.8-7.7); NEUTROPHILS % (AUTO) 70.8 % (40.0-70.0); PLATELET COUNT (AUTO) 283 K/uL (150-450); RED BLOOD CELL COUNT(AUTO) 4.98 MIL/uL (4.50-5.90); RED CELL DISTRIBUTION WIDTH 13.8 % (11.5-14.5)
[2022-08-27 13:34] LABS: ANION GAP 11 mmol/L (8-16); CALCIUM, TOTAL 8.9 mg/dL (8.8-10.5); CARBON DIOXIDE 23 mmol/L (22-29); CHLORIDE 101 mmol/L (98-107); CREATININE 0.72 mg/dL (0.60-1.30); GLOMERULAR FILTR. RATE CALC > 60 mL/min (>60); GLUCOSE,RANDOM 118 mg/dL (70-110); POTASSIUM 3.9 mmol/L (3.5-5.1); SODIUM SERUM 135 mmol/L (136-145)
[2022-08-27 13:40] LABS: ALANINE AMINOTRANSFERASE 29 U/L (12-78); ALBUMIN 3.7 g/dL (3.4-5.0); ALKALINE PHOSPHATASE 121 U/L (46-116); ASPARTATE AMINOTRANSFERASE 19 U/L (15-37); BILIRUBIN,TOTAL 0.2 mg/dL (0.1-1.0); TOTAL PROTEIN, SERUM 7.6 g/dL (6.4-8.2)
[2022-08-27] MEDS ORDERED: HALOPERIDOL 5 MG TABLET PO PRN (15:45)
[2022-08-27] MEDS ORDERED: DOCUSATE SODIUM 100 MG CAPSULE PO PRN (21:15)
[2022-08-27] MEDS ORDERED: DEXTROSE 50%-WATER 25 GM/50 ML SYRINGE IVP PRN (21:45)
[2022-08-27] MEDS: INSULIN GLARGINE,HUM.REC.ANLOG 100 UNITS/ML SQ SCH (21:52)
[2022-08-27] MEDS: INSULIN LISPRO 100 UNITS/ML SQ PRN (21:53)
[2022-08-27 22:03] LABS: GLUCOMETER DEV NAME(LOC) 3E.C
[2022-08-27 23:38] VITALS: BP 131/92; PULSE 93; RESP 18; TEMP 97.9; O2SAT 100
[2022-08-28 05:52] LABS: GLUCOMETER DEV NAME(LOC) 3E.C
[2022-08-28] MEDS: MetFORMIN HCL 500 MG TABLET PO SCH ×2 (06:37→16:40)
[2022-08-28] MEDS ORDERED: IBUPROFEN 400 MG TABLET PO PRN (08:15)
[2022-08-28] MEDS ORDERED: MAGNESIUM HYDROXIDE SUSPENSION 30 ML UDCUP PO PRN (08:15)
[2022-08-28] MEDS ORDERED: LOPERAMIDE HCL 2 MG CAPSULE PO PRN (08:15)
[2022-08-28] MEDS ORDERED: NICOTINE 14 MG/24 HOUR PATCH TD PRN (08:15)
[2022-08-28] MEDS ORDERED: GuaiFENesin/D-METHORPHAN [SUGAR-FREE] 200-20MG/10 ML SYRUP UDCUP PO PRN (08:15)
[2022-08-28] MEDS ORDERED: ONDANSETRON HCL 4 MG TABLET PO PRN (08:15)
[2022-08-28] MEDS ORDERED: MAG HYDROX/AL HYDROX/SIMETH ES 30 ML SUSPENSION UDCUP PO PRN (08:15)
[2022-08-28] MEDS ORDERED: PETROLATUM,WHITE 28 GM JELLY TP PRN (08:15)
[2022-08-28] MEDS ORDERED: CloNIDine HCL 0.1 MG TABLET PO PRN (08:15)
[2022-08-28] MEDS ORDERED: ALBUTEROL SULFATE HFA 90 MCG/PUFF 8 GM INHALER IH PRN (08:15)
[2022-08-28] MEDS ORDERED: DOCUSATE SODIUM 100 MG CAPSULE PO PRN (08:15)
[2022-08-28] MEDS ORDERED: ACETAMINOPHEN 325 MG TABLET PO PRN (08:15)
[2022-08-28] MEDS: ATORVASTATIN CALCIUM 40 MG TABLET PO SCH (09:24)
[2022-08-28] MEDS: BENAZEPRIL HCL 20 MG TABLET PO SCH (09:24)
[2022-08-28] MEDS: INSULIN GLARGINE,HUM.REC.ANLOG 100 UNITS/ML SQ SCH ×2 (09:28→17:34)
[2022-08-28 09:30] VITALS: BP 136/95; PULSE 106; RESP 18; TEMP 97.7; O2SAT 100
[2022-08-28] MEDS: ARIPiprazole 10 MG TABLET PO SCH (11:51)
[2022-08-28 11:52] LABS: GLUCOMETER DEV NAME(LOC) 3E.C
[2022-08-28 16:03] VITALS: BP 138/85; PULSE 79; RESP 18; TEMP 97.6; O2SAT 99
[2022-08-28 17:02] LABS: GLUCOMETER DEV NAME(LOC) 3E.C
[2022-08-28] MEDS: INSULIN LISPRO 100 UNITS/ML SQ PRN (17:34)
[2022-08-28] MEDS: LORazepam 2 MG TABLET PO PRN (20:15)
[2022-08-28 20:26] LABS: GLUCOMETER DEV NAME(LOC) 3E.C
[2022-08-28 20:33] VITALS: BP 113/62; PULSE 83; RESP 18; TEMP 97.2; O2SAT 96
[2022-08-28] MEDS: TraZODone HCL 50 MG TABLET PO SCH (20:58)
[2022-08-29] MEDS: MetFORMIN HCL 500 MG TABLET PO SCH ×2 (06:32→17:57)
[2022-08-29 07:21] LABS: GLUCOMETER DEV NAME(LOC) 3E.C
[2022-08-29 07:48] LABS: HEMOGLOBIN A1C 7.2 % (3.8-5.6)
[2022-08-29 07:58] LABS: CHOL/HDL RATIO 3.1 (4.2-7.3); THYROID STIMULATING HORMONE 2.06 uIU/mL (0.36-3.74)
[2022-08-29 08:38] LABS: APPEARANCE,URINE CLEAR (CLEAR); BILIRUBIN,URINE NEGATIVE (NEGATIVE); GLUCOSE, URINE (UA) NEGATIVE (NEGATIVE); KETONES,URINE NEGATIVE (NEGATIVE); LEUKOCYTE ESTERASE ,URINE NEGATIVE (NEGATIVE); NITRATE,URINE NEGATIVE (NEGATIVE); OCCULT BLOOD,URINE NEGATIVE (NEGATIVE); PH,URINE 7.5 (5.0-8.0); PROTEIN,URINE TRACE mg/dL (NEGATIVE); SPECIFIC GRAVITIY, URINE 1.018 (1.003-1.030); UROBILINOGEN,URINE <=1.0 mg/dL (<=1.0)
[2022-08-29 08:44] LABS: AMPHET/METH SCREEN,URINE NEGATIVE (NEGATIVE); BARBITURATE SCREEN, URINE NEGATIVE (NEGATIVE); BENZODIAZEPINES SCREEN,URINE NEGATIVE (NEGATIVE); CANNABINOID SCREEN,URINE NEGATIVE (NEGATIVE); COCAINE SCREEN,URINE NEGATIVE (NEGATIVE); METHADONE SCREEN, URINE NEGATIVE (NEGATIVE); OPIATE SCREEN,URINE NEGATIVE (NEGATIVE); PHENCYCLIDINE SCREEN,URINE NEGATIVE (NEGATIVE)
[2022-08-29 09:10] VITALS: BP 141/93; PULSE 101; RESP 18; TEMP 97.6; O2SAT 100
[2022-08-29] MEDS: ARIPiprazole 10 MG TABLET PO SCH (10:05)
[2022-08-29] MEDS: BENAZEPRIL HCL 20 MG TABLET PO SCH (10:06)
[2022-08-29] MEDS: ATORVASTATIN CALCIUM 40 MG TABLET PO SCH (10:06)
[2022-08-29] MEDS: INSULIN GLARGINE,HUM.REC.ANLOG 100 UNITS/ML SQ SCH ×2 (10:15→17:56)
[2022-08-29 10:33] LABS: GLUCOMETER DEV NAME(LOC) 3E.C
[2022-08-29] MEDS: INSULIN LISPRO 100 UNITS/ML SQ PRN ×3 (12:23→20:48)
[2022-08-29 12:32] LABS: GLUCOMETER DEV NAME(LOC) 3E.C
[2022-08-29 17:52] LABS: GLUCOMETER DEV NAME(LOC) 3E.C
[2022-08-29] MEDS: LORazepam 2 MG TABLET PO PRN (18:10)
[2022-08-29] MEDS: TraZODone HCL 50 MG TABLET PO SCH (20:12)
[2022-08-29 20:17] LABS: GLUCOMETER DEV NAME(LOC) 3E.C
[2022-08-29 21:49] VITALS: BP 145/82; PULSE 100; RESP 19; TEMP 97.8; O2SAT 95
[2022-08-30] MEDS: MetFORMIN HCL 500 MG TABLET PO SCH ×2 (06:36→18:18)
[2022-08-30] MEDS: INSULIN LISPRO 100 UNITS/ML SQ PRN ×4 (06:36→20:49)
[2022-08-30 07:27] LABS: GLUCOMETER DEV NAME(LOC) 3E.C
[2022-08-30 08:38] VITALS: BP 119/72; PULSE 93; RESP 18; TEMP 98.3; O2SAT 100
[2022-08-30] MEDS: ATORVASTATIN CALCIUM 40 MG TABLET PO SCH (09:37)
[2022-08-30] MEDS: ARIPiprazole 10 MG TABLET PO SCH (09:37)
[2022-08-30] MEDS: BENAZEPRIL HCL 20 MG TABLET PO SCH (09:37)
[2022-08-30] MEDS: INSULIN GLARGINE,HUM.REC.ANLOG 100 UNITS/ML SQ SCH ×2 (09:45→18:19)
[2022-08-30 10:02] LABS: GLUCOMETER DEV NAME(LOC) 3E.C
[2022-08-30 12:28] LABS: GLUCOMETER DEV NAME(LOC) 3E.C
[2022-08-30 17:28] LABS: GLUCOMETER DEV NAME(LOC) 3E.C
[2022-08-30 18:36] LABS: GLUCOMETER DEV NAME(LOC) 3E.C
[2022-08-30 20:12] VITALS: BP 122/63; PULSE 85; RESP 18; TEMP 97.9
[2022-08-30] MEDS: TraZODone HCL 50 MG TABLET PO SCH (20:16)
[2022-08-30] MEDS: LORazepam 2 MG TABLET PO PRN (20:16)
[2022-08-30 21:10] LABS: GLUCOMETER DEV NAME(LOC) 3E.C
[2022-08-31] MEDS: INSULIN LISPRO 100 UNITS/ML SQ PRN ×4 (06:35→21:04)
[2022-08-31] MEDS: MetFORMIN HCL 500 MG TABLET PO SCH ×2 (06:37→18:03)
[2022-08-31 07:26] LABS: GLUCOMETER DEV NAME(LOC) 3E.C
[2022-08-31 08:00] VITALS: BP 116/76; PULSE 99; RESP 19; TEMP 98.6; O2SAT 96
[2022-08-31] MEDS: BENAZEPRIL HCL 20 MG TABLET PO SCH (08:37)
[2022-08-31] MEDS: ATORVASTATIN CALCIUM 40 MG TABLET PO SCH (08:37)
[2022-08-31] MEDS: ARIPiprazole 10 MG TABLET PO SCH (08:37)
[2022-08-31] MEDS: INSULIN GLARGINE,HUM.REC.ANLOG 100 UNITS/ML SQ SCH ×2 (08:50→17:26)
[2022-08-31 09:01] LABS: GLUCOMETER DEV NAME(LOC) 3E.I 2
[2022-08-31 12:16] LABS: GLUCOMETER DEV NAME(LOC) 3E.I 2
[2022-08-31 17:07] LABS: GLUCOMETER DEV NAME(LOC) 3E.I 2
[2022-08-31] MEDS: LORazepam 2 MG TABLET PO PRN (20:19)
[2022-08-31] MEDS: TraZODone HCL 50 MG TABLET PO SCH (20:19)
[2022-08-31] MEDS: ZOLPIDEM TARTRATE 10 MG TABLET PO PRN (20:23)
[2022-08-31 20:50] VITALS: BP 143/87; PULSE 104; RESP 19; TEMP 97.8; O2SAT 100
[2022-08-31 21:28] LABS: GLUCOMETER DEV NAME(LOC) 3E.C
[2022-09-01] MEDS: MetFORMIN HCL 500 MG TABLET PO SCH ×2 (06:33→17:35)
[2022-09-01] MEDS: INSULIN LISPRO 100 UNITS/ML SQ PRN ×3 (06:33→21:10)
[2022-09-01 07:21] LABS: GLUCOMETER DEV NAME(LOC) 3E.C
[2022-09-01 08:03] VITALS: BP 120/60; PULSE 102; RESP 18; TEMP 97.2; O2SAT 97
[2022-09-01] MEDS: ATORVASTATIN CALCIUM 40 MG TABLET PO SCH (09:46)
[2022-09-01] MEDS: BENAZEPRIL HCL 20 MG TABLET PO SCH (09:46)
[2022-09-01] MEDS: ARIPiprazole 10 MG TABLET PO SCH (09:46)
[2022-09-01] MEDS: INSULIN GLARGINE,HUM.REC.ANLOG 100 UNITS/ML SQ SCH ×2 (10:17→17:36)
[2022-09-01 11:59] LABS: GLUCOMETER DEV NAME(LOC) 3E.I 2
[2022-09-01 16:58] LABS: GLUCOMETER DEV NAME(LOC) 3E.I 2
[2022-09-01] MEDS: LORazepam 2 MG TABLET PO PRN (19:01)
[2022-09-01 20:11] VITALS: BP 135/80; PULSE 80; RESP 18; TEMP 98.1; O2SAT 98
[2022-09-01 20:52] LABS: GLUCOMETER DEV NAME(LOC) 3E.C
[2022-09-01] MEDS: TraZODone HCL 50 MG TABLET PO SCH (20:59)
[2022-09-01] MEDS: ZOLPIDEM TARTRATE 10 MG TABLET PO PRN (21:09)
[2022-09-02 06:27] LABS: GLUCOMETER DEV NAME(LOC) 3E.C
[2022-09-02] MEDS: MetFORMIN HCL 500 MG TABLET PO SCH ×2 (07:04→17:45)
[2022-09-02] MEDS: INSULIN LISPRO 100 UNITS/ML SQ PRN ×4 (07:05→21:06)
[2022-09-02 09:01] VITALS: BP 126/79; PULSE 84; RESP 17; TEMP 97.7; O2SAT 94
[2022-09-02] MEDS: BENAZEPRIL HCL 20 MG TABLET PO SCH (09:27)
[2022-09-02] MEDS: ATORVASTATIN CALCIUM 40 MG TABLET PO SCH (09:27)
[2022-09-02] MEDS: ARIPiprazole 10 MG TABLET PO SCH (09:27)
[2022-09-02] MEDS: INSULIN GLARGINE,HUM.REC.ANLOG 100 UNITS/ML SQ SCH ×2 (09:27→17:46)
[2022-09-02 11:57] LABS: GLUCOMETER DEV NAME(LOC) 3E.I 2
[2022-09-02 18:37] LABS: GLUCOMETER DEV NAME(LOC) 3E.I 2
[2022-09-02 20:23] LABS: GLUCOMETER DEV NAME(LOC) 3E.C
[2022-09-02 20:30] VITALS: BP 115/72; PULSE 35; RESP 18; TEMP 98.5; O2SAT 98
[2022-09-02] MEDS: TraZODone HCL 50 MG TABLET PO SCH (21:05)
[2022-09-02] MEDS: ZOLPIDEM TARTRATE 10 MG TABLET PO PRN (21:05)
[2022-09-03] MEDS: LORazepam 2 MG TABLET PO PRN ×2 (01:05→18:13)
[2022-09-03] MEDS: MetFORMIN HCL 500 MG TABLET PO SCH ×2 (06:32→17:43)
[2022-09-03 07:06] LABS: GLUCOMETER DEV NAME(LOC) 3E.C
[2022-09-03 08:08] VITALS: BP 123/73; PULSE 75; RESP 18; TEMP 97.9; O2SAT 98
[2022-09-03] MEDS: ARIPiprazole 10 MG TABLET PO SCH (09:12)
[2022-09-03] MEDS: BENAZEPRIL HCL 20 MG TABLET PO SCH (09:12)
[2022-09-03] MEDS: ATORVASTATIN CALCIUM 40 MG TABLET PO SCH (09:12)
[2022-09-03] MEDS: INSULIN GLARGINE,HUM.REC.ANLOG 100 UNITS/ML SQ SCH ×2 (09:13→17:43)
[2022-09-03 12:11] LABS: GLUCOMETER DEV NAME(LOC) 3E.I 2
[2022-09-03 17:46] LABS: GLUCOMETER DEV NAME(LOC) 3E.I 2
[2022-09-03 20:50] LABS: GLUCOMETER DEV NAME(LOC) 3E.C
[2022-09-03] MEDS: TraZODone HCL 50 MG TABLET PO SCH (21:11)
[2022-09-03 21:25] VITALS: BP 127/79; PULSE 80; RESP 18; TEMP 97.7
[2022-09-04 05:46] LABS: GLUCOMETER DEV NAME(LOC) 3E.C
[2022-09-04] MEDS: MetFORMIN HCL 500 MG TABLET PO SCH ×2 (06:58→18:19)
[2022-09-04] MEDS: INSULIN LISPRO 100 UNITS/ML SQ PRN ×2 (07:01→21:09)
[2022-09-04] MEDS: BENAZEPRIL HCL 20 MG TABLET PO SCH (09:00)
[2022-09-04] MEDS: ATORVASTATIN CALCIUM 40 MG TABLET PO SCH (10:02)
[2022-09-04] MEDS: ARIPiprazole 10 MG TABLET PO SCH (10:02)
[2022-09-04] MEDS: INSULIN GLARGINE,HUM.REC.ANLOG 100 UNITS/ML SQ SCH ×2 (10:09→17:00)
[2022-09-04 10:18] VITALS: BP 113/58; PULSE 78; RESP 18; TEMP 97.8; O2SAT 98
[2022-09-04 10:21] LABS: GLUCOMETER DEV NAME(LOC) 3E.C
[2022-09-04 11:26] LABS: GLUCOMETER DEV NAME(LOC) 3E.C
[2022-09-04 16:01] LABS: GLUCOMETER DEV NAME(LOC) 3E.C
[2022-09-04 17:16] LABS: GLUCOMETER DEV NAME(LOC) 3E.C
[2022-09-04 20:35] VITALS: BP 119/75; PULSE 92; RESP 17; TEMP 97.6; O2SAT 97
[2022-09-04 20:41] LABS: GLUCOMETER DEV NAME(LOC) 3E.C
[2022-09-04] MEDS: TraZODone HCL 50 MG TABLET PO SCH (20:59)
[2022-09-04] MEDS: ZOLPIDEM TARTRATE 10 MG TABLET PO PRN (21:40)
[2022-09-05] MEDS: LORazepam 2 MG TABLET PO PRN ×2 (04:39→21:17)
[2022-09-05 05:06] LABS: GLUCOMETER DEV NAME(LOC) 3E.C
[2022-09-05 05:52] LABS: GLUCOMETER DEV NAME(LOC) 3E.C
[2022-09-05] MEDS: MetFORMIN HCL 500 MG TABLET PO SCH ×2 (06:36→17:30)
[2022-09-05 08:00] VITALS: BP 122/81; PULSE 106; RESP 18; TEMP 98
[2022-09-05] MEDS: ARIPiprazole 10 MG TABLET PO SCH (10:12)
[2022-09-05] MEDS: BENAZEPRIL HCL 20 MG TABLET PO SCH (10:13)
[2022-09-05] MEDS: ATORVASTATIN CALCIUM 40 MG TABLET PO SCH (10:13)
[2022-09-05] MEDS: INSULIN GLARGINE,HUM.REC.ANLOG 100 UNITS/ML SQ SCH ×2 (10:32→17:00)
[2022-09-05 11:26] LABS: GLUCOMETER DEV NAME(LOC) 3E.I 2
[2022-09-05 17:05] LABS: GLUCOMETER DEV NAME(LOC) 3E.I 2
[2022-09-05 20:39] VITALS: BP 116/76; PULSE 90; RESP 18; TEMP 96.9; O2SAT 99
[2022-09-05 21:06] LABS: GLUCOMETER DEV NAME(LOC) 3E.C
[2022-09-05] MEDS: TraZODone HCL 50 MG TABLET PO SCH (21:16)
[2022-09-05] MEDS: INSULIN LISPRO 100 UNITS/ML SQ PRN (21:44)
[2022-09-06 06:32] LABS: GLUCOMETER DEV NAME(LOC) 3E.C
[2022-09-06] MEDS: INSULIN LISPRO 100 UNITS/ML SQ PRN ×3 (06:34→21:38)
[2022-09-06] MEDS: MetFORMIN HCL 500 MG TABLET PO SCH ×2 (06:45→18:01)
[2022-09-06] MEDS: BENAZEPRIL HCL 20 MG TABLET PO SCH (08:53)
[2022-09-06] MEDS: ARIPiprazole 10 MG TABLET PO SCH (08:53)
[2022-09-06] MEDS: ATORVASTATIN CALCIUM 40 MG TABLET PO SCH (08:53)
[2022-09-06] MEDS: INSULIN GLARGINE,HUM.REC.ANLOG 100 UNITS/ML SQ SCH ×2 (08:54→18:02)
[2022-09-06 09:46] VITALS: BP 140/99; PULSE 78; RESP 19; TEMP 97.2; O2SAT 98
[2022-09-06 11:36] LABS: GLUCOMETER DEV NAME(LOC) 3E.I 2
[2022-09-06] MEDS: LORazepam 2 MG TABLET PO PRN (15:40)
[2022-09-06 16:56] LABS: GLUCOMETER DEV NAME(LOC) 3E.I 2
[2022-09-06] MEDS ORDERED: ATOR40TA71 PO (18:10)
[2022-09-06] MEDS ORDERED: TRAZ-252 PO (18:10)
[2022-09-06] MEDS ORDERED: ARIP10TA38 PO (18:10)
[2022-09-06] MEDS ORDERED: METF-1211 PO (18:10)
[2022-09-06] MEDS ORDERED: BENA-8 PO (18:10)
[2022-09-06 20:24] VITALS: BP 131/81; PULSE 72; RESP 18; TEMP 97.1; O2SAT 97
[2022-09-06 20:41] LABS: GLUCOMETER DEV NAME(LOC) 3E.C
[2022-09-06] MEDS: TraZODone HCL 50 MG TABLET PO SCH (21:12)
[2022-09-06] MEDS: ZOLPIDEM TARTRATE 10 MG TABLET PO PRN (22:01)
[2022-09-07] MEDS: LORazepam 2 MG TABLET PO PRN (02:11)
[2022-09-07 06:26] LABS: GLUCOMETER DEV NAME(LOC) 3E.C
[2022-09-07] MEDS: INSULIN LISPRO 100 UNITS/ML SQ PRN (06:36)
[2022-09-07] MEDS: MetFORMIN HCL 500 MG TABLET PO SCH (06:47)
[2022-09-07] MEDS: ARIPiprazole 10 MG TABLET PO SCH (09:25)
[2022-09-07] MEDS: BENAZEPRIL HCL 20 MG TABLET PO SCH (09:25)
[2022-09-07] MEDS: ATORVASTATIN CALCIUM 40 MG TABLET PO SCH (09:26)
== END 2022-09-07 10:41 | disposition home or self-care (01) | DRG 885 ==
LOC: EMS 12:35 → 3EX 16:46
PROVIDERS: ADMIT Psychiatry & Neurology Psychiatry; ATTEND Psychiatry & Neurology Psychiatry
DX: F25.1 Schizoaffective disorder, depressive type (principal); R45.851 Suicidal ideations; Z68.45 Body mass index [BMI] 70 or greater, adult; I10 Essential (primary) hypertension; F41.9 Anxiety disorder, unspecified; E66.01 Morbid (severe) obesity due to excess calories; E11.9 Type 2 diabetes mellitus without complications; G47.30 Sleep apnea, unspecified; K21.9 Gastro-esophageal reflux disease without esophagitis; Z20.822 Contact with and (suspected) exposure to COVID-19; D64.9 Anemia, unspecified; D72.829 Elevated white blood cell count, unspecified; E78.00 Pure hypercholesterolemia, unspecified; Z88.8 Allergy status to other drugs, medicaments and biological substances; Z79.4 Long term (current) use of insulin; Z79.899 Other long term (current) drug therapy; Z79.84 Long term (current) use of oral hypoglycemic drugs
CPT/HCPCS: 80053; 80061; 80307; 81003; 82962; 83036; 84443; 85025; 87081; 99285; G0378; G0480; J1815

== ENCOUNTER 2023-04-08 10:59 | Emergency (ER) | payer MEDICARE, OTHER ==
[~2023-04-08] VITALS: Ht 172.7 cm; Wt 127.3 kg
[~2023-04-08 10:59] MED LIST changes: -ARIP10TA38 PO; +ARIP882S2 IM; -INSLAN SQ; -INSU100I34 SQ
[2023-04-08] MEDS ORDERED: FENO160T16 PO (11:08)
[2023-04-08] MEDS ORDERED: INSU3INS3 SQ (11:08)
[2023-04-08] MEDS ORDERED: METF-446 PO (11:08)
[2023-04-08] MEDS ORDERED: INSU100I15 SQ (11:08)
[2023-04-08] MEDS ORDERED: GABA-1181 PO (11:08)
[2023-04-08 11:21] LABS: GLUCOMETER DEV NAME(LOC) ER.6; GLUCOSE,POINT OF CARE 137 MG/DL (70-110)
[2023-04-08 11:28] VITALS: TEMP 98
[2023-04-08] MEDS ORDERED: ACETAMINOPHEN 650 MG RECTAL SUPPOSITORY PR ONE (11:30)
[2023-04-08] MEDS: SODIUM CHLORIDE 0.9% 1,000 ML IV ONE (11:53)
[2023-04-08] MEDS: ACETAMINOPHEN 500 MG TABLET PO ONE (11:53)
[2023-04-08] MEDS: ONDANSETRON HCL 4 MG/2 ML VIAL IVP ONE (11:53)
[2023-04-08 11:56] LABS: COVID AG,FIA SOURCE NASAL SWAB
[2023-04-08 11:58] LABS: BASOPHILS % (AUTO) 0.2 % (0.0-2.0); EOSINOPHILS % (AUTO) 1.2 % (1.0-6.0); HEMATOCRIT 42.1 % (41-53); LYMPHOCYTES # (AUTO) 2.7 K/uL (1.0-4.8); LYMPHOCYTES % (AUTO) 27.2 % (22.0-44.0); MEAN CORPUSCULAR HEMOGLOBIN 27.3 pg (26.0-34.0); MEAN CORPUSCULAR HGB CONC 33.4 G/dL (31.0-37.0); MEAN CORPUSCULAR VOLUME 82 fL (80-100); MONOCYTES % (AUTO) 10.1 % (2.0-9.0); NEUTROPHILS % (AUTO) 61.3 % (40.0-70.0); PLATELET COUNT (AUTO) 281 K/uL (150-450); RED BLOOD CELL COUNT(AUTO) 5.15 MIL/uL (4.50-5.90); RED CELL DISTRIBUTION WIDTH 13.8 % (11.5-14.5); WHITE BLOOD COUNT (AUTO) 9.8 K/uL (4.5-11.0)
[2023-04-08 12:03] LABS: ANION GAP 10 mmol/L (8-16); CALCIUM, TOTAL 9.9 mg/dL (8.8-10.5); CARBON DIOXIDE 24 mmol/L (22-29); CHLORIDE 98 mmol/L (98-107); CREATININE 0.76 mg/dL (0.60-1.30); GLOMERULAR FILTR. RATE CALC > 60 mL/min (>60); GLUCOSE,RANDOM 138 mg/dL (70-110); POTASSIUM 3.6 mmol/L (3.5-5.1); SODIUM SERUM 132 mmol/L (136-145); UREA NITROGEN, BLOOD 9 mg/dL (7-18)
[2023-04-08 12:25] LABS: SARS-COV2 (COVID) ANTIGEN,FIA Negative (Negative)
[2023-04-08 12:26] LABS: INFLUENZA TYPE A NEGATIVE FOR TYPE A (NEGATIVE); INFLUENZA TYPE B NEGATIVE FOR TYPE B (NEGATIVE)
[2023-04-08 12:38] VITALS: BP 136/82; PULSE 89; RESP 16
== END 2023-04-08 13:00 | disposition home or self-care (01) ==
LOC: EMS 11:05
DX: R53.1 Weakness (principal); F32.A Depression, unspecified; E11.9 Type 2 diabetes mellitus without complications; E78.00 Pure hypercholesterolemia, unspecified; I10 Essential (primary) hypertension; F20.9 Schizophrenia, unspecified; R09.81 Nasal congestion; Z88.8 Allergy status to other drugs, medicaments and biological substances
CPT/HCPCS: 99284; 96374; 96361; 87426; 80048; 82962; 85025; 87804; 36415; 93005; J2405; J7030